=== PATIENT | male | born 1945 | race Caucasian/White ===

== ENCOUNTER → 2016-10-21 | Outpatient (REF) | payer MEDICARE, OTHER | LOC: M LAB REF 16:37 | PROVIDERS: ATTEND Surgery | DX: L57.8 Other skin changes due to chronic exposure to nonionizing radiation (principal) ==

== ENCOUNTER → 2017-03-23 | Outpatient (CLI) | payer MEDICARE, BC, OTHER ==
--- NOTE | 2017-03-23 11:41 | REP ---
Clinical: Pain. Technique: AP, lateral, bilateral oblique views of the right ankle. Findings: Lateral soft tissue swelling suggests inversion injury. No acute fracture dislocation. Joint spaces and ankle mortise are intact. No subcutaneous emphysema or radiodense foreign body. Impression: Lateral soft tissue swelling. Signed by Niko Orozco MD 03/23/2017 11:32 A
== END ==
LOC: M WUC 11:09
PROVIDERS: ATTEND Physician Assistant
DX: M25.571 Pain in right ankle and joints of right foot (principal); M25.471 Effusion, right ankle

== ENCOUNTER → 2017-08-20 | Outpatient (REF) | payer MEDICARE, OTHER ==
[2017-08-20 19:40] LABS: MEAN CORPUSCULAR HEMOGLOBIN 31.2 pg (27.0-33.0); MEAN CORPUSCULAR HGB CONC 32.5 g/dl (32.0-36.5); MEAN CORPUSCULAR VOLUME 95.9 fl (80.0-96.0); PLATELET COUNT, AUTOMATED 270 10^3/uL (150-450); RED CELL DISTRIBUTION WIDTH 12.3 % (11.5-14.5); WHITE BLOOD COUNT 6.2 10^3/uL (4.0-10.0)
[2017-08-20 20:06] LABS: ALBUMIN 4.2 GM/DL (3.2-5.2); ALBUMIN/GLOBULIN RATIO 1.31 (1.00-1.93); ALKALINE PHOSPHATASE 68 U/L (45-117); ALT/SGPT 32 U/L (12-78); ANION GAP 7 MEQ/L (8-16); AST/SGOT 24 U/L (7-37); BLOOD UREA NITROGEN 14 MG/DL (7-18); CALCIUM LEVEL 9.1 MG/DL (8.8-10.2); CARBON DIOXIDE LEVEL 30 MEQ/L (21-32); CHLORIDE LEVEL 104 MEQ/L (98-107); CHOLESTEROL LEVEL 155 MG/DL (<200); CREATININE FOR GFR 0.89 MG/DL (0.70-1.30); GLOMERULAR FILTRATION RATE > 60.0 (>42); GLUCOSE, FASTING 92 MG/DL (83-110); SODIUM LEVEL 141 MEQ/L (136-145); TOTAL PROTEIN 7.4 GM/DL (6.4-8.2); TRIGLYCERIDES LEVEL 59 MG/DL (<150)
== END ==
LOC: M SFHCADAM 14:03
PROVIDERS: ATTEND Family Medicine
DX: I25.10 Atherosclerotic heart disease of native coronary artery without angina pectoris (principal); E78.2 Mixed hyperlipidemia

== ENCOUNTER → 2017-11-30 | Outpatient (REF) | payer MEDICARE, OTHER | LOC: M LAB REF 12:30 | DX: J02.9 Acute pharyngitis, unspecified (principal) | CPT/HCPCS: 87081 ==

== ENCOUNTER → 2018-10-12 | Outpatient (REF) | payer MEDICARE, OTHER ==
[2018-10-12 12:51] LABS: HEMATOCRIT 46.3 % (42.0-52.0); HEMOGLOBIN 15.5 g/dl (13.5-17.5); MEAN CORPUSCULAR HEMOGLOBIN 32.2 pg (27.0-33.0); MEAN CORPUSCULAR HGB CONC 33.5 g/dl (32.0-36.5); MEAN CORPUSCULAR VOLUME 96.1 fl (80.0-96.0); PLATELET COUNT, AUTOMATED 275 10^3/uL (150-450); RED BLOOD COUNT 4.82 10^6/uL (4.30-6.10); WHITE BLOOD COUNT 5.7 10^3/uL (4.0-10.0)
[2018-10-12 12:59] LABS: ALBUMIN 4.1 GM/DL (3.2-5.2); ALT/SGPT 34 U/L (12-78); BLOOD UREA NITROGEN 16 MG/DL (7-18); CALCIUM LEVEL 9.1 MG/DL (8.8-10.2); CARBON DIOXIDE LEVEL 30 MEQ/L (21-32); CHLORIDE LEVEL 106 MEQ/L (98-107); CHOLESTEROL LEVEL 157 MG/DL (<200); CHOLESTEROL RISK RATIO 2.065 (<5); CREATININE FOR GFR 1.03 MG/DL (0.70-1.30); GLOMERULAR FILTRATION RATE > 60.0 (>42); GLUCOSE, FASTING 95 MG/DL (70-100); HDL CHOLESTEROL 76 MG/DL (>40); LDL CHOLESTEROL 71 MG/DL (<100); NON-HDL-C 81 MG/DL; POTASSIUM SERUM 4.7 MEQ/L (3.5-5.1); SODIUM LEVEL 142 MEQ/L (136-145); TOTAL PROTEIN 7.3 GM/DL (6.4-8.2); TRIGLYCERIDES LEVEL 51 MG/DL (<150)
== END ==
LOC: M SFHCADAM 09:22
PROVIDERS: ATTEND Family Medicine
DX: I25.10 Atherosclerotic heart disease of native coronary artery without angina pectoris (principal); I11.9 Hypertensive heart disease without heart failure; E78.2 Mixed hyperlipidemia; Z12.5 Encounter for screening for malignant neoplasm of prostate
CPT/HCPCS: 80053; 80061; 85027; G0103; G0463

== ENCOUNTER 2020-06-19 14:01 | Emergency (ER) | payer MEDICARE, BC, OTHER ==
[~2020-06-19] VITALS: Ht 175.3 cm; Wt 94.5 kg
[2020-06-19] MEDS ORDERED: METO1TAB32 (14:15)
[2020-06-19] MEDS ORDERED: PANT40TA29 (14:15)
[2020-06-19] MEDS ORDERED: CALA180T (14:15)
[2020-06-19] MEDS ORDERED: IRBE150T7 (14:15)
[2020-06-19] MEDS ORDERED: ATOR1TAB19 (14:15)
[2020-06-19] MEDS ORDERED: RABIES VACCINE HUMAN 2.5 INTERNATIONAL UNITS/ML VIAL (90675) IM ONE (14:30)
[2020-06-19] MEDS ORDERED: RABIES IMMUNE GLOBULIN 1500 INTERNATIONAL UNIT/5ML VIAL (90375) IM ONE ×2 (14:30→14:45)
[2020-06-19] MEDS ORDERED: RABIES IMMUNE GLOBULIN 300 INTERNATIONAL UNITS/1ML VIAL (90375) IM ONE (14:45)
[2020-06-19 15:42] VITALS: BP 172/96
== END 2020-06-19 15:43 | disposition home or self-care (01) ==
LOC: M ED 14:01
DX: Z20.3 Contact with and (suspected) exposure to rabies (principal); Z23 Encounter for immunization; S81.832A Puncture wound without foreign body, left lower leg, initial encounter; W54.0XXA Bitten by dog, initial encounter; Y92.410 Unspecified street and highway as the place of occurrence of the external cause; Y93.9 Activity, unspecified; Y99.9 Unspecified external cause status; I10 Essential (primary) hypertension; Z79.899 Other long term (current) drug therapy; Z88.5 Allergy status to narcotic agent

== ENCOUNTER 2020-06-22 07:44 | Emergency (ER) | payer MEDICARE, BC, OTHER ==
[~2020-06-22] VITALS: Ht 175.3 cm; Wt 95.7 kg
[~2020-06-22 07:44] MED LIST: ATOR1TAB19; CALA180T; IRBE150T7; METO1TAB32; PANT40TA29
[2020-06-22] MEDS ORDERED: RABIES VACCINE HUMAN 2.5 INTERNATIONAL UNITS/ML VIAL (90675) IM ONE (08:00)
[2020-06-22 08:23] VITALS: BP 170/90
== END 2020-06-22 08:41 | disposition home or self-care (01) ==
LOC: M ED 07:44
DX: Z20.3 Contact with and (suspected) exposure to rabies (principal); Z23 Encounter for immunization; I10 Essential (primary) hypertension; E78.5 Hyperlipidemia, unspecified; Z79.899 Other long term (current) drug therapy; Z88.5 Allergy status to narcotic agent

== ENCOUNTER 2020-06-26 07:35 | Emergency (ER) | payer MEDICARE, BC, OTHER ==
[~2020-06-26] VITALS: Ht 175.3 cm; Wt 92.7 kg
[2020-06-26 07:36] VITALS: BP 177/82
[2020-06-26] MEDS ORDERED: RABIES VACCINE HUMAN 2.5 INTERNATIONAL UNITS/ML VIAL (90675) IM ONE (08:00)
== END 2020-06-26 08:32 | disposition home or self-care (01) ==
LOC: M ED 07:35
DX: Z20.3 Contact with and (suspected) exposure to rabies (principal); Z23 Encounter for immunization; Z79.899 Other long term (current) drug therapy; Z88.5 Allergy status to narcotic agent

== ENCOUNTER 2020-07-03 07:38 | Emergency (ER) | payer MEDICARE, BC, OTHER ==
[~2020-07-03] VITALS: Ht 175.3 cm; Wt 92.6 kg
[2020-07-03] MEDS ORDERED: RABIES VACCINE HUMAN 2.5 INTERNATIONAL UNITS/ML VIAL (90675) IM ONE (08:00)
[2020-07-03 08:15] VITALS: BP 158/80
== END 2020-07-03 08:22 | disposition home or self-care (01) ==
LOC: M ED 07:38
DX: Z23 Encounter for immunization (principal); Z20.3 Contact with and (suspected) exposure to rabies; S81.852D Open bite, left lower leg, subsequent encounter; X58.XXXD Exposure to other specified factors, subsequent encounter; Y92.9 Unspecified place or not applicable; Y93.9 Activity, unspecified; Y99.9 Unspecified external cause status; I10 Essential (primary) hypertension; E78.5 Hyperlipidemia, unspecified; K21.9 Gastro-esophageal reflux disease without esophagitis

== ENCOUNTER → 2020-07-04 | Outpatient (REF) | payer MEDICARE, OTHER | LOC: M SFHCADAM 11:55 | PROVIDERS: ATTEND Family Medicine | DX: I25.10 Atherosclerotic heart disease of native coronary artery without angina pectoris (principal); E78.2 Mixed hyperlipidemia; K21.9 Gastro-esophageal reflux disease without esophagitis; I11.9 Hypertensive heart disease without heart failure; Z12.5 Encounter for screening for malignant neoplasm of prostate ==

== ENCOUNTER → 2020-07-09 | Outpatient (REF) | payer MEDICARE, OTHER ==
[2020-07-09 14:28] LABS: HEMATOCRIT 47.7 % (42.0-52.0); HEMOGLOBIN 15.8 g/dl (13.5-17.5); MEAN CORPUSCULAR HEMOGLOBIN 32.2 pg (27.0-33.0); MEAN CORPUSCULAR HGB CONC 33.1 g/dl (32.0-36.5); MEAN CORPUSCULAR VOLUME 97.1 fl (80.0-96.0); PLATELET COUNT, AUTOMATED 268 10^3/uL (150-450); RED BLOOD COUNT 4.91 10^6/uL (4.30-6.10); WHITE BLOOD COUNT 5.6 10^3/uL (4.0-10.0)
[2020-07-09 15:08] LABS: ALT/SGPT 24 U/L (12-78); BILIRUBIN,TOTAL 1.1 MG/DL (0.2-1.0); BLOOD UREA NITROGEN 10 MG/DL (7-18); CALCIUM LEVEL 9.4 MG/DL (8.8-10.2); CARBON DIOXIDE LEVEL 31 MEQ/L (21-32); CHLORIDE LEVEL 105 MEQ/L (98-107); CHOLESTEROL LEVEL 125 MG/DL (<200); CHOLESTEROL RISK RATIO 2.403 (<5); CREATININE FOR GFR 0.98 MG/DL (0.70-1.30); FREE T4 1.03 NG/DL (0.76-1.46); GLOMERULAR FILTRATION RATE > 60.0 (>42); GLUCOSE, FASTING 91 MG/DL (70-100); HDL CHOLESTEROL 52 MG/DL (>40); LDL CHOLESTEROL 58 MG/DL (<100); NON-HDL-C 73 MG/DL; POTASSIUM SERUM 4.3 MEQ/L (3.5-5.1); SODIUM LEVEL 143 MEQ/L (136-145); TOTAL PROTEIN 6.8 GM/DL (6.4-8.2); TRIGLYCERIDES LEVEL 73 MG/DL (<150)
== END ==
LOC: M SFHCADAM 07:32
PROVIDERS: ATTEND Family Medicine
DX: I25.10 Atherosclerotic heart disease of native coronary artery without angina pectoris (principal); E78.2 Mixed hyperlipidemia; K21.9 Gastro-esophageal reflux disease without esophagitis; I11.9 Hypertensive heart disease without heart failure; Z12.5 Encounter for screening for malignant neoplasm of prostate
CPT/HCPCS: 80053; 80061; 84439; 84443; 85027; G0103

== ENCOUNTER → 2021-07-15 | Outpatient (REF) | payer MEDICARE, OTHER | LOC: M LAB REF 13:10 | PROVIDERS: ATTEND Physician Assistant | DX: J02.9 Acute pharyngitis, unspecified (principal) ==

== ENCOUNTER → 2021-07-24 | Outpatient (REF) | payer MEDICARE, OTHER ==
[2021-07-24 18:53] LABS: HEMATOCRIT 48.1 % (42.0-52.0); HEMOGLOBIN 15.9 g/dl (13.5-17.5); MEAN CORPUSCULAR HEMOGLOBIN 32.4 pg (27.0-33.0); MEAN CORPUSCULAR HGB CONC 33.1 g/dl (32.0-36.5); MEAN CORPUSCULAR VOLUME 98.2 fl (80.0-96.0); PLATELET COUNT, AUTOMATED 325 10^3/uL (150-450)
[2021-07-24 19:28] LABS: ALBUMIN 3.7 GM/DL (3.2-5.2); ALT/SGPT 27 U/L (12-78); BILIRUBIN,TOTAL 0.8 MG/DL (0.2-1.0); BLOOD UREA NITROGEN 10 MG/DL (7-18); CALCIUM LEVEL 9.1 MG/DL (8.8-10.2); CARBON DIOXIDE LEVEL 31 MEQ/L (21-32); CHLORIDE LEVEL 105 MEQ/L (98-107); CHOLESTEROL LEVEL 142 MG/DL (<200); CHOLESTEROL RISK RATIO 2.327 (<5); CREATININE FOR GFR 0.88 MG/DL (0.70-1.30); GLOMERULAR FILTRATION RATE > 60.0 (>42); GLUCOSE, FASTING 82 MG/DL (70-100); HDL CHOLESTEROL 61 MG/DL (>40); LDL CHOLESTEROL 72 MG/DL (<100); NON-HDL-C 81 MG/DL; POTASSIUM SERUM 4.4 MEQ/L (3.5-5.1); SODIUM LEVEL 141 MEQ/L (136-145); TOTAL PROTEIN 7.1 GM/DL (6.4-8.2); TRIGLYCERIDES LEVEL 46 MG/DL (<150)
== END ==
LOC: M SFHCADAM 14:48
PROVIDERS: ATTEND Family Medicine
DX: I25.10 Atherosclerotic heart disease of native coronary artery without angina pectoris (principal); E78.2 Mixed hyperlipidemia; Z12.5 Encounter for screening for malignant neoplasm of prostate
CPT/HCPCS: 80053; 80061; 85027; G0103; G0463

== ENCOUNTER 2021-11-15 10:07 | Emergency (ER) | payer MEDICARE, OTHER, BC ==
[~2021-11-15] VITALS: Ht 172.7 cm; Wt 88.2 kg
[2021-11-15 11:31] LABS: BASO % 0.4 % (0.0-1.0); EOS # 0.1 10^3/uL (0.0-0.5); EOS % 0.9 % (0.0-3.0); HEMATOCRIT 45.4 % (42.0-52.0); HEMOGLOBIN 15.6 g/dl (13.5-17.5); LYMPH # 0.7 10^3/uL (1.5-5.0); MEAN CORPUSCULAR HEMOGLOBIN 32.3 pg (27.0-33.0); MEAN CORPUSCULAR HGB CONC 34.4 g/dl (32.0-36.5); MONO # 0.5 10^3/uL (0.0-0.8); MONO % 5.1 % (2.0-8.0); NEUTROPHILS % 85.9 % (36.0-66.0); PLATELET COUNT, AUTOMATED 234 10^3/uL (150-450); RED BLOOD COUNT 4.83 10^6/uL (4.30-6.10); WHITE BLOOD COUNT 10.5 10^3/uL (4.0-10.0)
[2021-11-15 12:39] LABS: ALT/SGPT 30 U/L (12-78); BILIRUBIN,DIRECT 0.4 MG/DL (0.0-0.2); BILIRUBIN,TOTAL 1.5 MG/DL (0.2-1.0); BLOOD UREA NITROGEN 14 MG/DL (7-18); CARBON DIOXIDE LEVEL 27 MEQ/L (21-32); CHLORIDE LEVEL 106 MEQ/L (98-107); CREATININE FOR GFR 1.01 MG/DL (0.70-1.30); GLOMERULAR FILTRATION RATE > 60.0 (>42); GLUCOSE, FASTING 99 MG/DL (70-100); LIPASE 61 U/L (73-393); POTASSIUM SERUM 4.1 MEQ/L (3.5-5.1); SODIUM LEVEL 139 MEQ/L (136-145); TOTAL PROTEIN 7.2 GM/DL (6.4-8.2)
[2021-11-15] MEDS ORDERED: ISOVUE-370 76% 100ML VIAL As Ordered ONE (12:48)
[2021-11-15 14:07] VITALS: BP 154/90
== END 2021-11-15 14:18 | disposition home or self-care (01) ==
LOC: M ED 10:07
DX: R14.0 Abdominal distension (gaseous) (principal); I25.10 Atherosclerotic heart disease of native coronary artery without angina pectoris; I10 Essential (primary) hypertension; K21.9 Gastro-esophageal reflux disease without esophagitis; Z95.5 Presence of coronary angioplasty implant and graft; Z87.891 Personal history of nicotine dependence; Z79.899 Other long term (current) drug therapy; Z88.5 Allergy status to narcotic agent
CPT/HCPCS: 36415; 74177; 80048; 80076; 83605; 83690; 84484; 85025; 93005; 99284; Q9967

== ENCOUNTER 2022-02-14 09:48 | Emergency (ER) | payer MEDICARE, BC, OTHER ==
[~2022-02-14] VITALS: Ht 175.3 cm; Wt 93.8 kg
[2022-02-14] MEDS ORDERED: SANI2SUP PR (11:44)
[2022-02-14] MEDS ORDERED: COLA100C5 PO (11:44)
[2022-02-14 11:56] VITALS: BP 148/82
== END 2022-02-14 11:57 | disposition home or self-care (01) ==
LOC: M ED 09:48
DX: K59.00 Constipation, unspecified (principal); I10 Essential (primary) hypertension; E78.5 Hyperlipidemia, unspecified; K21.9 Gastro-esophageal reflux disease without esophagitis; Z79.899 Other long term (current) drug therapy; Z88.5 Allergy status to narcotic agent

== ENCOUNTER → 2022-07-25 | Outpatient (REF) | payer MEDICARE, OTHER ==
[~2022-07-25] MED LIST changes: +COLA100C5 PO; +SANI2SUP PR
== END ==
LOC: M SFHCADAM 14:03
PROVIDERS: ATTEND Family Medicine
DX: I25.10 Atherosclerotic heart disease of native coronary artery without angina pectoris (principal); E78.2 Mixed hyperlipidemia; Z12.5 Encounter for screening for malignant neoplasm of prostate; Z53.9 Procedure and treatment not carried out, unspecified reason

== ENCOUNTER → 2022-07-28 | Outpatient (REF) | payer MEDICARE, OTHER ==
[2022-07-28 14:29] LABS: HEMOGLOBIN 14.6 g/dl (13.5-17.5); MEAN CORPUSCULAR HGB CONC 32.4 g/dl (32.0-36.5); MEAN CORPUSCULAR VOLUME 101.6 fl (80.0-96.0); PLATELET COUNT, AUTOMATED 225 10^3/uL (150-450); RED BLOOD COUNT 4.43 10^6/uL (4.30-6.10); WHITE BLOOD COUNT 4.7 10^3/uL (4.0-10.0)
[2022-07-28 16:38] LABS: ALBUMIN 3.7 GM/DL (3.2-5.2); ALT/SGPT 27 U/L (12-78); BILIRUBIN,TOTAL 1.2 MG/DL (0.2-1.0); BLOOD UREA NITROGEN 9 MG/DL (7-18); CALCIUM LEVEL 9.1 MG/DL (8.8-10.2); CARBON DIOXIDE LEVEL 27 MEQ/L (21-32); CHLORIDE LEVEL 107 MEQ/L (98-107); CHOLESTEROL LEVEL 185 MG/DL (<200); CHOLESTEROL RISK RATIO 2.681 (<5); CREATININE FOR GFR 0.95 MG/DL (0.70-1.30); FREE T4 0.88 NG/DL (0.76-1.46); GLOMERULAR FILTRATION RATE > 60.0 (>42); GLUCOSE, FASTING 94 MG/DL (70-100); HDL CHOLESTEROL 69 MG/DL (>40); LDL CHOLESTEROL 103 MG/DL (<100); NON-HDL-C 116 MG/DL; POTASSIUM SERUM 4.4 MEQ/L (3.5-5.1); SODIUM LEVEL 142 MEQ/L (136-145); TOTAL PROTEIN 6.8 GM/DL (6.4-8.2); TRIGLYCERIDES LEVEL 65 MG/DL (<150)
== END ==
LOC: M SFHCADAM 07:16
PROVIDERS: ATTEND Family Medicine
DX: I25.10 Atherosclerotic heart disease of native coronary artery without angina pectoris (principal); E78.2 Mixed hyperlipidemia; Z12.5 Encounter for screening for malignant neoplasm of prostate
CPT/HCPCS: 80053; 80061; 84439; 84443; 85027; G0103

== ENCOUNTER → 2023-09-22 | Outpatient (REF) | payer MEDICARE, BC, OTHER ==
[2023-09-22 14:17] LABS: HEMATOCRIT 59.5 % (42.0-52.0); MEAN CORPUSCULAR HEMOGLOBIN 34.7 pg (27.0-33.0); MEAN CORPUSCULAR HGB CONC 34.3 g/dl (32.0-36.5); MEAN CORPUSCULAR VOLUME 101.2 fl (80.0-96.0); PLATELET COUNT, AUTOMATED 200 10^3/uL (150-450); RED BLOOD COUNT 5.88 10^6/uL (4.30-6.10); WHITE BLOOD COUNT 5.3 10^3/uL (4.0-10.0)
[2023-09-22 14:21] LABS: FERRITIN 60.8 NG/ML (10.5-307.3)
[2023-09-22 14:32] LABS: HEMOGLOBIN 20.4 g/dl (13.5-17.5)
[2023-09-23 16:53] LABS: PERCENT SATURATION 20.2 % (19.7-50.0)
== END ==
LOC: M SFHCADAM 07:53
PROVIDERS: ATTEND Family Medicine
DX: D75.1 Secondary polycythemia (principal); Z86.39 Personal history of other endocrine, nutritional and metabolic disease

== ENCOUNTER → 2023-09-23 | Outpatient (REF) | payer MEDICARE, BC, OTHER | LOC: M SFHCADAM 09:59 | PROVIDERS: ATTEND Family Medicine | DX: D75.1 Secondary polycythemia (principal) ==

== ENCOUNTER → 2023-09-24 | Outpatient (REF) | payer MEDICARE, BC, OTHER | LOC: M SFHCDERM 13:13 | PROVIDERS: ATTEND Nurse Practitioner Family | DX: C44.311 Basal cell carcinoma of skin of nose (principal); C44.319 Basal cell carcinoma of skin of other parts of face ==

== ENCOUNTER 2023-10-09 03:25 | Inpatient (IN) | payer MEDICARE, BC, OTHER ==
[2023-10-09] VITALS (52 sets, daily range): BP systolic 75–189; BP diastolic 44–100; TEMP 97.5–98.4; O2SAT 88–98
[~2023-10-09] VITALS: Ht 172.7 cm; Wt 97.9 kg
[~2023-10-09 03:25] MED LIST changes: -ATOR1TAB19; +ATOR1TAB19 PO; +IRBE150T27 PO; -IRBE150T7; -METO1TAB32; +METO1TAB32 PO; -PANT40TA29; +PANT40TA29 PO
[2023-10-09 04:12] LABS: BASO # 0.1 10^3/uL (0.0-0.2); BASO % 1.5 % (0.0-1.0); EOS # 0.2 10^3/uL (0.0-0.5); EOS % 3.3 % (0.0-3.0); HEMATOCRIT 55.5 % (42.0-52.0); HEMOGLOBIN 19.2 g/dl (13.5-17.5); LYMPH # 1.1 10^3/uL (1.5-5.0); LYMPH % 23.1 % (24.0-44.0); MEAN CORPUSCULAR HEMOGLOBIN 34.3 pg (27.0-33.0); MEAN CORPUSCULAR HGB CONC 34.6 g/dl (32.0-36.5); MEAN CORPUSCULAR VOLUME 99.3 fl (80.0-96.0); MONO # 0.6 10^3/uL (0.0-0.8); MONO % 12.6 % (2.0-8.0); NEUTROPHILS # 2.6 10^3/uL (1.5-8.5); NEUTROPHILS % 58.2 % (36.0-66.0); PLATELET COUNT, AUTOMATED 217 10^3/uL (150-450); RED BLOOD COUNT 5.59 10^6/uL (4.30-6.10); WHITE BLOOD COUNT 4.5 10^3/uL (4.0-10.0)
[2023-10-09 04:24] LABS: INR 1.08; PROTHROMBIN TIME 13.7 SECONDS (12.5-14.5)
[2023-10-09 04:25] LABS: PARTIAL THROMBOPLASTIN TIME 27.7 SECONDS (24.8-34.2)
[2023-10-09 04:40] LABS: RSV AMPLIFICATION NEGATIVE (NEGATIVE)
[2023-10-09 04:46] LABS: BLOOD UREA NITROGEN 8 MG/DL (9-23); CALCIUM LEVEL 8.5 MG/DL (8.3-10.6); CARBON DIOXIDE LEVEL 28 MMOL/L (20-31); CHLORIDE LEVEL 107 MMOL/L (98-107); CK-MB VALUE MASS 1.1 NG/ML (<3.6); CREATININE FOR GFR 0.85 MG/DL (0.70-1.30); GLOMERULAR FILTRATION RATE > 60.0 (>42); GLUCOSE, FASTING 103 MG/DL (74-106); POTASSIUM SERUM 3.9 MMOL/L (3.5-5.1); SODIUM LEVEL 140 MMOL/L (136-145)
[2023-10-09 04:48] LABS: CPK CREATINE PHOSPHOKINASE 100 U/L (46-171)
[2023-10-09] MEDS: hydrALAZINE 20MG/ML 1ML VIAL IV ONE (05:03)
[2023-10-09 05:08] LABS: MAGNESIUM LEVEL 1.8 MG/DL (1.8-2.4)
[2023-10-09] MEDS ORDERED: MAALOX 30 ML SUSP *UDC PO PRN (05:25)
[2023-10-09] MEDS ORDERED: MOM 30ML SUSPENSION UDC PO PRN (05:25)
[2023-10-09] MEDS ORDERED: VERA180T42 PO (05:40)
[2023-10-09] MEDS ORDERED: BISA5TAB15 PO (05:40)
[2023-10-09] MEDS ORDERED: COLA100C5 PO (05:40)
[2023-10-09] MEDS ORDERED: MECL-86 PO (05:40)
[2023-10-09] MEDS ORDERED: ASPI81TA26 PO (05:40)
[2023-10-09] MEDS ORDERED: HOME MED LIST COMPLETE! XX SCH (05:45)
[2023-10-09] MEDS ORDERED: IRON65TA2 PO (05:45)
[2023-10-09] MEDS ORDERED: COQ1200C PO (05:45)
[2023-10-09 05:54] LABS: CK-MB VALUE MASS 1.2 NG/ML (<3.6)
[2023-10-09] MEDS: NS 1,000 ML IV SCH ×2 (05:58→15:29)
[2023-10-09 06:06] LABS: MB/CK RELATIVE INDEX 1.23 (< OR =4)
[2023-10-09] MEDS: ACETAMINOPHEN TAB 650MG DOSE (2X325MG) PO PRN (06:37)
[2023-10-09] MEDS ORDERED: FERROUS SULFATE 325MG TAB PO SCH (09:00)
[2023-10-09] MEDS: DOCUSATE SODIUM 100MG CAPSULE PO SCH (09:43)
[2023-10-09] MEDS: HEPARIN SOD (PORCINE) 5000UNITS/ML 1ML VIAL/SYRINGE SC SCH (09:44)
[2023-10-09] MEDS ORDERED: ISOVUE-370 76% 100ML VIAL As Ordered ONE (11:02)
[2023-10-09 11:17] LABS: CHOLESTEROL LEVEL 177 MG/DL (<200); LDL CHOLESTEROL 101.6 MG/DL (<100); TRIGLYCERIDES LEVEL 92 MG/DL (<150)
[2023-10-09 11:59] LABS: ALBUMIN 3.8 G/DL (3.2-5.2); ALKALINE PHOSPHATASE 79 U/L (46-116); ALT/SGPT 33 U/L (7.0-40); AST/SGOT 29 U/L (<34); BILIRUBIN,TOTAL 2.2 MG/DL (0.3-1.2); BLOOD UREA NITROGEN 8 MG/DL (9-23); CALCIUM LEVEL 8.8 MG/DL (8.3-10.6); CARBON DIOXIDE LEVEL 27 MMOL/L (20-31); CHLORIDE LEVEL 107 MMOL/L (98-107); CREATININE FOR GFR 0.75 MG/DL (0.70-1.30); GLOMERULAR FILTRATION RATE > 60.0 (>42); GLUCOSE, FASTING 102 MG/DL (74-106); POTASSIUM SERUM 3.8 MMOL/L (3.5-5.1); SODIUM LEVEL 139 MMOL/L (136-145); TOTAL PROTEIN 6.5 G/DL (5.7-8.2)
[2023-10-09] MEDS ORDERED: BISACODYL 5MG TAB PO PRN (12:40)
[2023-10-09] MEDS ORDERED: MECLIZINE 25 MG TABLET PO PRN (12:40)
[2023-10-09] MEDS: cloNIDine 0.1MG TABLET PO ONE ×2 (13:33→15:29)
[2023-10-09] MEDS: NITROGLYCERIN 2% OINT 1 GM *U/D* PKT TOP ONE (13:35)
[2023-10-09] MEDS ORDERED: ASPIRIN 81MG ENTERIC TABLET PO SCH (14:35)
[2023-10-09] MEDS: ASPIRIN 81MG ENTERIC TABLET PO SCH (14:37)
[2023-10-09] MEDS: METOPROLOL SUCC *XL* 12.5MG PER 1/2 TAB (TopROL *XL*) PO ONE (15:29)
[2023-10-09] MEDS: VERAPAMIL 180MG EXTENDED RELEASE TABLET PO ONE (15:29)
[2023-10-09] MEDS: niCARdipine IV 40 MG in IV 1 EA IV SCH (16:11)
[2023-10-09 19:32] LABS: ABG BASE EXCESS -0.9 (-2.0-2.0); ABG HCO3 21.8 MMOL/L (22.0-26.0); ABG O2 SATURATION 95.4 % (95.0-99.0); ABG PARTIAL PRESSURE CO2 32.4 mmHg (35.0-45.0); ABG PARTIAL PRESSURE O2 69.9 mmHg (75.0-100.0); ABG STANDARD HCO3 23.6 MMOL/L. (22.0-26.0); ABG TOTAL CO2 22.8 MMOL/L (23.0-31.0); ABG pH (ARTERIAL) 7.446 UNITS (7.350-7.450)
[2023-10-09] MEDS: LORazepam 2 MG/ML 1ML VIAL IV PRN ×2 (20:50→22:47)
[2023-10-09] MEDS ORDERED: PANTOPRAZOLE 40MG TAB (PROTONIX) PO SCH (21:00)
[2023-10-09] MEDS ORDERED: METOPROLOL SUCC *XL* 25MG TAB (TopROL *XL*) PO SCH (21:00)
[2023-10-09] MEDS: ATORVASTATIN 10 MG TAB PO SCH (21:00)
[2023-10-09] MEDS: THIAMINE 200MG 2ML VIAL IM ONE (23:24)
[2023-10-10] VITALS (76 sets, daily range): BP systolic 92–221; BP diastolic 49–126; TEMP 97.4–98.6; O2SAT 89–99
[2023-10-10] MEDS: hydrALAZINE 20MG/ML 1ML VIAL IV PRN (00:23)
[2023-10-10] MEDS: dexmedeTOMidine 200 MCG in IV 1 EA IV SCH (00:56)
[2023-10-10] MEDS: OLANZapine INTRAMUSCULAR 10MG VIAL IM ONE (02:01)
[2023-10-10 06:07] LABS: HEMATOCRIT 53.3 % (42.0-52.0); HEMOGLOBIN 18.4 g/dl (13.5-17.5); MEAN CORPUSCULAR HEMOGLOBIN 34.2 pg (27.0-33.0); MEAN CORPUSCULAR HGB CONC 34.5 g/dl (32.0-36.5); MEAN CORPUSCULAR VOLUME 99.1 fl (80.0-96.0); PLATELET COUNT, AUTOMATED 204 10^3/uL (150-450); RED BLOOD COUNT 5.38 10^6/uL (4.30-6.10); WHITE BLOOD COUNT 7.2 10^3/uL (4.0-10.0)
[2023-10-10 06:38] LABS: ALBUMIN 3.4 G/DL (3.2-5.2); ALKALINE PHOSPHATASE 68 U/L (46-116); ALT/SGPT 28 U/L (7.0-40); AST/SGOT 30 U/L (<34); BILIRUBIN,TOTAL 3.3 MG/DL (0.3-1.2); BLOOD UREA NITROGEN 8 MG/DL (9-23); CALCIUM LEVEL 8.8 MG/DL (8.3-10.6); CARBON DIOXIDE LEVEL 26 MMOL/L (20-31); CHLORIDE LEVEL 108 MMOL/L (98-107); CREATININE FOR GFR 0.77 MG/DL (0.70-1.30); GLOMERULAR FILTRATION RATE > 60.0 (>42); GLUCOSE, FASTING 102 MG/DL (74-106); POTASSIUM SERUM 3.8 MMOL/L (3.5-5.1); SODIUM LEVEL 141 MMOL/L (136-145); TOTAL PROTEIN 5.8 G/DL (5.7-8.2)
[2023-10-10] MEDS: DOCUSATE SODIUM 100MG CAPSULE PO SCH (08:29)
[2023-10-10] MEDS: THIAMINE 200MG 2ML VIAL IM SCH (08:35)
[2023-10-10] MEDS ORDERED: ASPIRIN 300 MG SUPP PR SCH (09:00)
[2023-10-10] MEDS ORDERED: IRBESARTAN 150MG TAB PO SCH (09:00)
[2023-10-10] MEDS ORDERED: VERAPAMIL 180MG EXTENDED RELEASE TABLET PO SCH (09:00)
[2023-10-10 12:10] LABS: ANTINUCLEAR ANTIBODIES DIRECT Negative (Negative)
[2023-10-10] MEDS: MULTIVITAMIN -ADULT INJECTION 10 ML, THIAMINE INJection 100 MG, FOLIC ACID 1 MG in NS 1... IV ONE (17:39)
[2023-10-10 18:12] LABS: VENOUS BASE EXCESS -2.1 (-2.0-2.0); VENOUS HCO3 20.8 MMOL/L (23.0-27.0); VENOUS O2 SATURATION 97.7 % (60.0-80.0); VENOUS PARTIAL PRESSURE CO2 32.2 mmHg (38.0-50.0); VENOUS PARTIAL PRESSURE O2 96.2 mmHg (30.0-50.0); VENOUS PH 7.428 UNITS (7.330-7.430); VENOUS STANDARD HCO3 22.7 MMOL/L; VENOUS TOTAL CO2 21.8 MMOL/L (24.0-28.0)
[2023-10-10] MEDS: ATORVASTATIN 20 MG TAB PO SCH (19:16)
[2023-10-10] MEDS ORDERED: ROCURONIUM BROMIDE 50MG/5ML VIAL As Ordered ONE (20:38)
[2023-10-10] MEDS ORDERED: MIDAZOLAM 5MG/ML 1ML VIAL As Ordered ONE (20:38)
[2023-10-10] MEDS ORDERED: PROPOFOL 1,000 MG/100 ML VIAL As Ordered ONE (20:39)
[2023-10-10] MEDS ORDERED: MIDAZOLAM 5MG/ML 1ML VIAL IM ONE (20:55)
[2023-10-10] MEDS: propofoL 1,000 MG in IV 1 EA IV SCH (20:55)
[2023-10-10 21:39] LABS: VENOUS BASE EXCESS -4.5 (-2.0-2.0); VENOUS HCO3 21.3 MMOL/L (23.0-27.0); VENOUS O2 SATURATION 97.4 % (60.0-80.0); VENOUS PARTIAL PRESSURE CO2 41.9 mmHg (38.0-50.0); VENOUS PARTIAL PRESSURE O2 98.1 mmHg (30.0-50.0); VENOUS PH 7.324 UNITS (7.330-7.430); VENOUS STANDARD HCO3 20.8 MMOL/L; VENOUS TOTAL CO2 22.6 MMOL/L (24.0-28.0)
[2023-10-10] MEDS: ROCURONIUM BROMIDE 50MG/5ML VIAL IV SCH (22:53)
[2023-10-10] MEDS: MIDAZOLAM 5MG/ML 1ML VIAL IV ONE (22:57)
[2023-10-11] VITALS (50 sets, daily range): BP systolic 98–206; BP diastolic 51–93; TEMP 97.2–99.3; O2SAT 94–99
[2023-10-11] MEDS: MIDAZOLAM INJ 2MG/2ML VIAL IV PRN (04:41)
[2023-10-11 05:23] LABS: HEMATOCRIT 43.2 % (42.0-52.0)
[2023-10-11 05:24] LABS: HEMOGLOBIN 14.5 g/dl (13.5-17.5)
[2023-10-11] MEDS: OXAZEPAM 15MG CAP PO SCH ×2 (09:27→23:25)
[2023-10-11] MEDS: VERAPAMIL 40 MG TAB PO SCH (17:53)
[2023-10-11] MEDS ORDERED: OXAZEPAM 15MG CAP PO SCH (18:00)
[2023-10-11] MEDS: METOPROLOL TART 12.5 MG PER 1/2 TAB PO SCH (20:08)
[2023-10-12] VITALS (66 sets, daily range): BP systolic 98–193; BP diastolic 53–87; TEMP 97.9–101; O2SAT 92–97
[2023-10-12 06:08] LABS: ALBUMIN 2.9 G/DL (3.2-5.2); ALKALINE PHOSPHATASE 63 U/L (46-116); ALT/SGPT 61 U/L (7.0-40); AST/SGOT 160 U/L (<34); BILIRUBIN,DIRECT 1.8 MG/DL (<0.4); BILIRUBIN,TOTAL 3.5 MG/DL (0.3-1.2); BLOOD UREA NITROGEN 28 MG/DL (9-23); CALCIUM LEVEL 8.7 MG/DL (8.3-10.6); CARBON DIOXIDE LEVEL 25 MMOL/L (20-31); CHLORIDE LEVEL 107 MMOL/L (98-107); CREATININE FOR GFR 1.21 MG/DL (0.70-1.30); GLOMERULAR FILTRATION RATE > 60.0 (>42); GLUCOSE, FASTING 98 MG/DL (74-106); POTASSIUM SERUM 3.9 MMOL/L (3.5-5.1); SODIUM LEVEL 138 MMOL/L (136-145); TOTAL PROTEIN 5.7 G/DL (5.7-8.2)
[2023-10-12] MEDS: niCARdipine IV 40 MG in IV 1 EA IV SCH (11:23)
[2023-10-12] MEDS: OXAZEPAM 15MG CAP PO SCH (12:00)
[2023-10-12] MEDS: METOPROLOL 5 MG/5 ML VIAL IV PRN (18:27)
[2023-10-12] MEDS: MULTIVITAMIN -ADULT INJECTION 10 ML, THIAMINE INJection 100 MG, FOLIC ACID 1 MG in NS 1... IV ONE (18:28)
[2023-10-13] VITALS (94 sets, daily range): BP systolic 97–191; BP diastolic 54–103; TEMP 97.5–100.8; O2SAT 91–99
[2023-10-13 05:23] LABS: BASO # 0.1 10^3/uL (0.0-0.2); BASO % 0.3 % (0.0-1.0); EOS % 0.1 % (0.0-3.0); LYMPH # 0.9 10^3/uL (1.5-5.0); LYMPH % 6.3 % (24.0-44.0); MEAN CORPUSCULAR HEMOGLOBIN 34.6 pg (27.0-33.0); MEAN CORPUSCULAR HGB CONC 33.8 g/dl (32.0-36.5); MEAN CORPUSCULAR VOLUME 102.3 fl (80.0-96.0); MONO # 1.6 10^3/uL (0.0-0.8); MONO % 11.1 % (2.0-8.0); NEUTROPHILS # 11.9 10^3/uL (1.5-8.5); NEUTROPHILS % 81.4 % (36.0-66.0); PLATELET COUNT, AUTOMATED 161 10^3/uL (150-450); RED BLOOD COUNT 5.12 10^6/uL (4.30-6.10); WHITE BLOOD COUNT 14.7 10^3/uL (4.0-10.0)
[2023-10-13 05:41] LABS: ALKALINE PHOSPHATASE 68 U/L (46-116); ALT/SGPT 69 U/L (7.0-40); AST/SGOT 135 U/L (<34); BILIRUBIN,TOTAL 3.6 MG/DL (0.3-1.2); BLOOD UREA NITROGEN 30 MG/DL (9-23); CALCIUM LEVEL 8.4 MG/DL (8.3-10.6); CARBON DIOXIDE LEVEL 23 MMOL/L (20-31); CHLORIDE LEVEL 109 MMOL/L (98-107); CREATININE FOR GFR 1.01 MG/DL (0.70-1.30); GLOMERULAR FILTRATION RATE > 60.0 (>42); GLUCOSE, FASTING 101 MG/DL (74-106); MAGNESIUM LEVEL 2.2 MG/DL (1.8-2.4); PHOSPHORUS LEVEL 3.4 MG/DL (2.4-5.1); POTASSIUM SERUM 3.8 MMOL/L (3.5-5.1); SODIUM LEVEL 141 MMOL/L (136-145); TOTAL PROTEIN 5.8 G/DL (5.7-8.2)
[2023-10-13 05:43] LABS: HEMATOCRIT 52.4 % (42.0-52.0); HEMOGLOBIN 17.7 g/dl (13.5-17.5)
[2023-10-13] MEDS: DOCUSATE SOD LIQ 100MG/10ML UDC GT SCH (10:18)
[2023-10-13] MEDS: PANTOPRAZOLE 40MG VIAL IV SCH (18:00)
[2023-10-13] MEDS: LORazepam 2 MG/ML 1ML VIAL IV ONE (22:50)
[2023-10-13] MEDS ORDERED: LORazepam 2 MG/ML 1ML VIAL IV PRN (23:45)
[2023-10-14] VITALS (71 sets, daily range): BP systolic 116–216; BP diastolic 55–89; TEMP 97.6–100; O2SAT 90–97
[2023-10-14 04:37] LABS: BASO # 0.1 10^3/uL (0.0-0.2); BASO % 0.7 % (0.0-1.0); EOS # 0.1 10^3/uL (0.0-0.5); EOS % 0.6 % (0.0-3.0); HEMOGLOBIN 17.8 g/dl (13.5-17.5); LYMPH % 8.9 % (24.0-44.0); MEAN CORPUSCULAR HEMOGLOBIN 34.7 pg (27.0-33.0); MEAN CORPUSCULAR HGB CONC 34.2 g/dl (32.0-36.5); MEAN CORPUSCULAR VOLUME 101.4 fl (80.0-96.0); MONO # 1.4 10^3/uL (0.0-0.8); MONO % 12.7 % (2.0-8.0); NEUTROPHILS # 8.7 10^3/uL (1.5-8.5); NEUTROPHILS % 76.1 % (36.0-66.0); PLATELET COUNT, AUTOMATED 172 10^3/uL (150-450); RED BLOOD COUNT 5.13 10^6/uL (4.30-6.10); WHITE BLOOD COUNT 11.4 10^3/uL (4.0-10.0)
[2023-10-14 05:26] LABS: ALBUMIN 2.9 G/DL (3.2-5.2); ALKALINE PHOSPHATASE 68 U/L (46-116); ALT/SGPT 62 U/L (7.0-40); AST/SGOT 94 U/L (<34); BILIRUBIN,TOTAL 3.2 MG/DL (0.3-1.2); BLOOD UREA NITROGEN 26 MG/DL (9-23); CALCIUM LEVEL 8.7 MG/DL (8.3-10.6); CARBON DIOXIDE LEVEL 23 MMOL/L (20-31); CHLORIDE LEVEL 111 MMOL/L (98-107); CREATININE FOR GFR 0.89 MG/DL (0.70-1.30); GLOMERULAR FILTRATION RATE > 60.0 (>42); GLUCOSE, FASTING 97 MG/DL (74-106); MAGNESIUM LEVEL 2.3 MG/DL (1.8-2.4); PHOSPHORUS LEVEL 2.4 MG/DL (2.4-5.1); POTASSIUM SERUM 3.9 MMOL/L (3.5-5.1); SODIUM LEVEL 143 MMOL/L (136-145); TOTAL PROTEIN 5.9 G/DL (5.7-8.2)
[2023-10-14 08:40] LABS: VENOUS BASE EXCESS -1.8 (-2.0-2.0); VENOUS HCO3 20.5 MMOL/L (23.0-27.0); VENOUS O2 SATURATION 99.1 % (60.0-80.0); VENOUS PARTIAL PRESSURE CO2 30.1 mmHg (38.0-50.0); VENOUS PH 7.452 UNITS (7.330-7.430); VENOUS TOTAL CO2 21.5 MMOL/L (24.0-28.0)
[2023-10-14] MEDS: INSULIN LISPRO (NovoLOG) PER UNIT SC SCH (17:10)
[2023-10-14] MEDS: LORazepam 2 MG/ML 1ML VIAL IV PRN (18:01)
[2023-10-14] MEDS: FAT EMULSION IV 250 ML IV ONE (20:09)
[2023-10-14] MEDS: AMINO AC/ELECTROLYTE/DEX/CALC 1,000 ML IV SCH (20:09)
[2023-10-15] VITALS (45 sets, daily range): BP systolic 113–194; BP diastolic 51–91; TEMP 97.8–100.1; O2SAT 89–94
[2023-10-15 05:05] LABS: ALBUMIN 2.7 G/DL (3.2-5.2); ALKALINE PHOSPHATASE 69 U/L (46-116); ALT/SGPT 62 U/L (7.0-40); AST/SGOT 88 U/L (<34); BILIRUBIN,TOTAL 3.1 MG/DL (0.3-1.2); BLOOD UREA NITROGEN 35 MG/DL (9-23); CALCIUM LEVEL 8.9 MG/DL (8.3-10.6); CARBON DIOXIDE LEVEL 22 MMOL/L (20-31); CHLORIDE LEVEL 113 MMOL/L (98-107); CREATININE FOR GFR 0.91 MG/DL (0.70-1.30); GLOMERULAR FILTRATION RATE > 60.0 (>42); GLUCOSE, FASTING 117 MG/DL (74-106); MAGNESIUM LEVEL 2.6 MG/DL (1.8-2.4); POTASSIUM SERUM 3.6 MMOL/L (3.5-5.1); SODIUM LEVEL 142 MMOL/L (136-145); TOTAL PROTEIN 5.8 G/DL (5.7-8.2)
[2023-10-15] MEDS: HYALURONIDASE 150UNIT/ML 1ML VIAL (AMPHADASE) SC ONE (05:55)
[2023-10-15] MEDS: ENOXAPARIN 40MG/0.4ML SYRINGE (J1650 PER 10MG) SC SCH (09:09)
[2023-10-15] MEDS: SODIUM CHLORIDE 0.9% INJ 10 ML SYR IV SCH (17:51)
[2023-10-15] MEDS: AMINO AC/ELECTROLYTE/DEX/CALC 1,000 ML IV SCH (19:00)
[2023-10-15] MEDS: METOPROLOL 5 MG/5 ML VIAL IV STA (19:52)
[2023-10-15] MEDS: LEVALBUTEROL 1.25MG 0.5ML CONCENTRATE NEB NEB ONE (20:39)
[2023-10-16] VITALS (35 sets, daily range): BP systolic 129–193; BP diastolic 59–83; TEMP 97.9–100.1; O2SAT 88–95
[2023-10-16 05:07] LABS: ALBUMIN 2.8 G/DL (3.2-5.2); ALKALINE PHOSPHATASE 74 U/L (46-116); ALT/SGPT 70 U/L (7.0-40); AST/SGOT 82 U/L (<34); BILIRUBIN,TOTAL 4.6 MG/DL (0.3-1.2); BLOOD UREA NITROGEN 43 MG/DL (9-23); CALCIUM LEVEL 8.3 MG/DL (8.3-10.6); CARBON DIOXIDE LEVEL 21 MMOL/L (20-31); CHLORIDE LEVEL 116 MMOL/L (98-107); CREATININE FOR GFR 1.05 MG/DL (0.70-1.30); GLOMERULAR FILTRATION RATE > 60.0 (>42); GLUCOSE, FASTING 121 MG/DL (74-106); MAGNESIUM LEVEL 2.6 MG/DL (1.8-2.4); POTASSIUM SERUM 3.6 MMOL/L (3.5-5.1); SODIUM LEVEL 145 MMOL/L (136-145); TOTAL PROTEIN 5.9 G/DL (5.7-8.2)
[2023-10-16] MEDS ORDERED: OXYMETAZOLINE 0.05% NASAL SPRAY (AFRIN) PRN (11:55)
[2023-10-16 12:35] LABS: BASO # 0.1 10^3/uL (0.0-0.2); BASO % 0.8 % (0.0-1.0); EOS # 0.1 10^3/uL (0.0-0.5); EOS % 1.3 % (0.0-3.0); HEMATOCRIT 51.9 % (42.0-52.0); HEMOGLOBIN 17.5 g/dl (13.5-17.5); LYMPH # 0.5 10^3/uL (1.5-5.0); MEAN CORPUSCULAR HEMOGLOBIN 34.5 pg (27.0-33.0); MEAN CORPUSCULAR HGB CONC 33.7 g/dl (32.0-36.5); MEAN CORPUSCULAR VOLUME 102.4 fl (80.0-96.0); MONO # 1.2 10^3/uL (0.0-0.8); MONO % 13.4 % (2.0-8.0); NEUTROPHILS # 6.9 10^3/uL (1.5-8.5); NEUTROPHILS % 77.3 % (36.0-66.0); PLATELET COUNT, AUTOMATED 215 10^3/uL (150-450); RED BLOOD COUNT 5.07 10^6/uL (4.30-6.10); WHITE BLOOD COUNT 8.9 10^3/uL (4.0-10.0)
[2023-10-16] MEDS: OLANZapine INTRAMUSCULAR 10MG VIAL IM STA ×2 (17:05→18:32)
[2023-10-16] MEDS: MULTIVITAMIN -ADULT INJECTION 10 ML, ZINC/COPPER/MANGANESE/SELENIUM 1 ML in AMINO AC/EL... IV SCH (17:49)
[2023-10-16] MEDS: FAT EMULSION IV 250 ML IV ONE (17:49)
[2023-10-16] MEDS: INSULIN LISPRO (NovoLOG) PER UNIT SC SCH (17:50)
[2023-10-16] MEDS: BISACODYL 10MG SUPP PR PRN (21:20)
[2023-10-17] VITALS (48 sets, daily range): BP systolic 90–164; BP diastolic 53–85; TEMP 99–100.5; O2SAT 92–96
[2023-10-17] MEDS: diphenhydrAMINE 50MG/ML VIAL IV STA (02:16)
[2023-10-17 02:30] LABS: ABG BASE EXCESS -2.3 (-2.0-2.0); ABG HCO3 19.9 MMOL/L (22.0-26.0); ABG O2 SATURATION 97.3 % (95.0-99.0); ABG PARTIAL PRESSURE CO2 28.8 mmHg (35.0-45.0); ABG PARTIAL PRESSURE O2 90.3 mmHg (75.0-100.0); ABG STANDARD HCO3 22.6 MMOL/L. (22.0-26.0); ABG TOTAL CO2 20.8 MMOL/L (23.0-31.0); ABG pH (ARTERIAL) 7.458 UNITS (7.350-7.450)
[2023-10-17] MEDS: LEVALBUTEROL 1.25MG 0.5ML CONCENTRATE NEB NEB ONE (02:35)
[2023-10-17 06:02] LABS: ALBUMIN 2.8 G/DL (3.2-5.2); ALKALINE PHOSPHATASE 71 U/L (46-116); ALT/SGPT 84 U/L (7.0-40); AST/SGOT 82 U/L (<34); BILIRUBIN,TOTAL 4.8 MG/DL (0.3-1.2); BLOOD UREA NITROGEN 34 MG/DL (9-23); CALCIUM LEVEL 8.5 MG/DL (8.3-10.6); CARBON DIOXIDE LEVEL 23 MMOL/L (20-31); CHLORIDE LEVEL 122 MMOL/L (98-107); CREATININE FOR GFR 0.99 MG/DL (0.70-1.30); GLOMERULAR FILTRATION RATE > 60.0 (>42); GLUCOSE, FASTING 159 MG/DL (74-106); MAGNESIUM LEVEL 2.2 MG/DL (1.8-2.4); POTASSIUM SERUM 3.6 MMOL/L (3.5-5.1); SODIUM LEVEL 154 MMOL/L (136-145); TOTAL PROTEIN 5.7 G/DL (5.7-8.2)
[2023-10-17] MEDS: NS 0.45% 1,000 ML IV SCH (11:23)
[2023-10-17] MEDS: LORazepam 2 MG/ML 1ML VIAL IV PRN (11:27)
[2023-10-17] MEDS ORDERED: SODIUM CHLORIDE IV SCH (18:00)
[2023-10-17] MEDS ORDERED: SODIUM ACETATE IV SCH (18:00)
[2023-10-17] MEDS ORDERED: FAT EMULSION IV 250 ML IV ONE (18:00)
[2023-10-17] MEDS ORDERED: INSULIN LISPRO (NovoLOG) PER UNIT SC SCH (18:00)
[2023-10-17] MEDS ORDERED: [UNRECOGNIZED DRUG - OTHER] IV SCH (18:00)
[2023-10-18] VITALS (30 sets, daily range): BP systolic 94–162; BP diastolic 53–83; TEMP 97.7–99.8; O2SAT 94–97
[2023-10-18 05:00] LABS: HEMATOCRIT 48.2 % (42.0-52.0); HEMOGLOBIN 16.1 g/dl (13.5-17.5); MEAN CORPUSCULAR HEMOGLOBIN 34.3 pg (27.0-33.0); MEAN CORPUSCULAR HGB CONC 33.4 g/dl (32.0-36.5); MEAN CORPUSCULAR VOLUME 102.8 fl (80.0-96.0); PLATELET COUNT, AUTOMATED 221 10^3/uL (150-450); RED BLOOD COUNT 4.69 10^6/uL (4.30-6.10); WHITE BLOOD COUNT 10.7 10^3/uL (4.0-10.0)
[2023-10-18 10:28] LABS: LDH LACTATE DEHYDROGENASE 475 U/L (120-246)
[2023-10-18 10:31] LABS: ALBUMIN 2.6 G/DL (3.2-5.2); ALKALINE PHOSPHATASE 78 U/L (46-116); ALT/SGPT 101 U/L (7.0-40); AST/SGOT 93 U/L (<34); BILIRUBIN,TOTAL 4.8 MG/DL (0.3-1.2); BLOOD UREA NITROGEN 22 MG/DL (9-23); CALCIUM LEVEL 8.4 MG/DL (8.3-10.6); CARBON DIOXIDE LEVEL 26 MMOL/L (20-31); CHLORIDE LEVEL 117 MMOL/L (98-107); CHOLESTEROL LEVEL 119 MG/DL (<200); CPK CREATINE PHOSPHOKINASE 120 U/L (46-171); CREATININE FOR GFR 0.74 MG/DL (0.70-1.30); GLOMERULAR FILTRATION RATE > 60.0 (>42); GLUCOSE, FASTING 123 MG/DL (74-106); PHOSPHORUS LEVEL 2.9 MG/DL (2.4-5.1); POTASSIUM SERUM 3.7 MMOL/L (3.5-5.1); SODIUM LEVEL 149 MMOL/L (136-145); TOTAL PROTEIN 5.4 G/DL (5.7-8.2); TRIGLYCERIDES LEVEL 123 MG/DL (<150)
[2023-10-18] MEDS: DOXYCYCLINE HYCLATE 100 MG in D5W MINI-BAG PLUS 100 ML IV SCH (12:22)
[2023-10-19] VITALS (22 sets, daily range): BP systolic 103–176; BP diastolic 58–92; TEMP 96.8–97.5; O2SAT 93–98
[2023-10-19 05:18] LABS: HEMATOCRIT 48.8 % (42.0-52.0); HEMOGLOBIN 16.2 g/dl (13.5-17.5); MEAN CORPUSCULAR HEMOGLOBIN 34.5 pg (27.0-33.0); MEAN CORPUSCULAR HGB CONC 33.2 g/dl (32.0-36.5); MEAN CORPUSCULAR VOLUME 103.8 fl (80.0-96.0); PLATELET COUNT, AUTOMATED 203 10^3/uL (150-450); WHITE BLOOD COUNT 8.5 10^3/uL (4.0-10.0)
[2023-10-19 05:59] LABS: ALBUMIN 2.4 G/DL (3.2-5.2); ALKALINE PHOSPHATASE 88 U/L (46-116); ALT/SGPT 116 U/L (7.0-40); AST/SGOT 101 U/L (<34); BILIRUBIN,TOTAL 4.6 MG/DL (0.3-1.2); BLOOD UREA NITROGEN 24 MG/DL (9-23); CALCIUM LEVEL 8.4 MG/DL (8.3-10.6); CARBON DIOXIDE LEVEL 26 MMOL/L (20-31); CHLORIDE LEVEL 116 MMOL/L (98-107); CREATININE FOR GFR 0.85 MG/DL (0.70-1.30); GLOMERULAR FILTRATION RATE > 60.0 (>42); GLUCOSE, FASTING 80 MG/DL (74-106); POTASSIUM SERUM 3.9 MMOL/L (3.5-5.1); SODIUM LEVEL 148 MMOL/L (136-145); TOTAL PROTEIN 8.2 G/DL (5.7-8.2)
[2023-10-19] MEDS: SODIUM CHLORIDE 0.9% INJ 10 ML SYR IV PRN (06:08)
[2023-10-19] MEDS ORDERED: D5W 1,000 ML IV SCH (08:40)
[2023-10-19] MEDS ORDERED: VARIBAR PUDDING 40% w/v 230ML TUBE As Ordered ONE (10:56)
[2023-10-19] MEDS ORDERED: BARIUM SULFATE 700 MG TABLET (E-Z-DISK) As Ordered ONE (10:56)
[2023-10-19] MEDS ORDERED: E-Z-PAQUE 96% w/w SUSP 176GM BTL As Ordered ONE (10:56)
[2023-10-19] MEDS ORDERED: VARIBAR NECTAR 40% w/v 240ML SUSP BTL As Ordered ONE (10:56)
[2023-10-19] MEDS: ALBUTEROL SULFATE 2.5MG/0.5ML INH NEB SOLN NEB SCH (13:18)
[2023-10-19] MEDS: SODIUM CHLORIDE HYPERTONIC 3% 4ML NEB SOL INH SCH (13:18)
[2023-10-19 14:18] LABS: PHOSPHORUS LEVEL 3.2 MG/DL (2.4-5.1)
[2023-10-19] MEDS: SODIUM CHLORIDE 0.45% 1000 ML IV ONE (16:05)
[2023-10-19] MEDS: HALOPERIDOL 5MG/ML 1ML VIAL IV ONE (16:13)
[2023-10-19] MEDS: METOPROLOL 5 MG/5 ML VIAL IV SCH (16:15)
[2023-10-19] MEDS: MULTIVITAMIN -ADULT INJECTION 10 ML, THIAMINE INJection 100 MG, FOLIC ACID 1 MG in NS 1... IV ONE (16:20)
[2023-10-19] MEDS: hydrALAZINE 20MG/ML 1ML VIAL IV SCH (16:38)
[2023-10-19] MEDS: MULTIVITAMIN -ADULT INJECTION 10 ML, ZINC/COPPER/MANGANESE/SELENIUM 1 ML in AMINO AC/EL... IV SCH (17:40)
[2023-10-19] MEDS: FAT EMULSION IV 250 ML IV ONE (17:41)
[2023-10-19 17:58] LABS: ABG BASE EXCESS -0.9 (-2.0-2.0); ABG O2 SATURATION 97.6 % (95.0-99.0); ABG PARTIAL PRESSURE CO2 28.9 mmHg (35.0-45.0); ABG PARTIAL PRESSURE O2 89.3 mmHg (75.0-100.0); ABG STANDARD HCO3 23.7 MMOL/L. (22.0-26.0); ABG TOTAL CO2 21.9 MMOL/L (23.0-31.0)
[2023-10-19] MEDS: INSULIN LISPRO (NovoLOG) PER UNIT SC SCH (18:00)
[2023-10-19] MEDS ORDERED: dexmedeTOMIDine (4MCG/ML)200MCG/50ML BTL (PRECEDEX) As Ordered ONE (18:29)
[2023-10-19] MEDS ORDERED: METOPROLOL 5 MG/5 ML VIAL IV PRN (20:05)
[2023-10-19] MEDS: diphenhydrAMINE 50MG/ML VIAL IV STA (21:55)
[2023-10-19] MEDS: OLANZapine INTRAMUSCULAR 10MG VIAL IM ONE (23:31)
[2023-10-20] VITALS (29 sets, daily range): BP systolic 114–158; BP diastolic 62–102; TEMP 97–99.7; O2SAT 84–98
[2023-10-20] MEDS ORDERED: LEVALBUTEROL 1.25MG 0.5ML CONCENTRATE NEB INH PRN (00:30)
[2023-10-20] MEDS: SODIUM CHLORIDE HYPERTONIC 3% 4ML NEB SOL INH ONE (01:02)
[2023-10-20] MEDS: ALBUTEROL SULFATE 2.5MG/0.5ML INH NEB SOLN NEB PRN (01:02)
[2023-10-20 05:27] LABS: HEMATOCRIT 47.9 % (42.0-52.0); HEMOGLOBIN 16.4 g/dl (13.5-17.5); MEAN CORPUSCULAR HEMOGLOBIN 34.7 pg (27.0-33.0); MEAN CORPUSCULAR HGB CONC 34.2 g/dl (32.0-36.5); MEAN CORPUSCULAR VOLUME 101.3 fl (80.0-96.0); PLATELET COUNT, AUTOMATED 224 10^3/uL (150-450); RED BLOOD COUNT 4.73 10^6/uL (4.30-6.10); WHITE BLOOD COUNT 8.2 10^3/uL (4.0-10.0)
[2023-10-20 05:53] LABS: PHOSPHORUS LEVEL 3.3 MG/DL (2.4-5.1)
[2023-10-20 05:57] LABS: ALBUMIN 2.6 G/DL (3.2-5.2); ALKALINE PHOSPHATASE 93 U/L (46-116); ALT/SGPT 127 U/L (7.0-40); AST/SGOT 103 U/L (<34); BLOOD UREA NITROGEN 18 MG/DL (9-23); CALCIUM LEVEL 8.3 MG/DL (8.3-10.6); CARBON DIOXIDE LEVEL 25 MMOL/L (20-31); CHLORIDE LEVEL 113 MMOL/L (98-107); CREATININE FOR GFR 0.76 MG/DL (0.70-1.30); GLOMERULAR FILTRATION RATE > 60.0 (>42); GLUCOSE, FASTING 111 MG/DL (74-106); POTASSIUM SERUM 3.6 MMOL/L (3.5-5.1); SODIUM LEVEL 146 MMOL/L (136-145); TOTAL PROTEIN 5.6 G/DL (5.7-8.2)
[2023-10-20] MEDS: **hydrALAZINE HCL** 25 MG TAB PO SCH (17:00)
[2023-10-20] MEDS: methylPREDNISolone 125MG 2ML VIAL IV ONE (17:57)
[2023-10-20] MEDS: IPRATROPIUM 0.5MG/ALBUTEROL 2.5MG INH SOL UD 3ML (DUONEB) NEB SCH (18:00)
[2023-10-20] MEDS: INSULIN LISPRO (NovoLOG) PER UNIT SC SCH (18:00)
[2023-10-20] MEDS: NS 0.45% 1,000 ML IV SCH (18:08)
[2023-10-20] MEDS: AMINO AC/ELECTROLYTE/DEX/CALC 2,000 ML IV SCH (18:49)
[2023-10-20] MEDS: FAT EMULSION IV 250 ML IV ONE (18:49)
[2023-10-20 19:46] LABS: ABG BASE EXCESS -1.3 (-2.0-2.0); ABG HCO3 22.4 MMOL/L (22.0-26.0); ABG O2 SATURATION 95.6 % (95.0-99.0); ABG PARTIAL PRESSURE CO2 34.9 mmHg (35.0-45.0); ABG PARTIAL PRESSURE O2 74.5 mmHg (75.0-100.0); ABG STANDARD HCO3 23.4 MMOL/L. (22.0-26.0); ABG TOTAL CO2 23.5 MMOL/L (23.0-31.0); ABG pH (ARTERIAL) 7.425 UNITS (7.350-7.450)
[2023-10-20] MEDS: LORazepam 2 MG/ML 1ML VIAL IV STA (20:41)
[2023-10-20] MEDS: DOXYCYCLINE HYCLATE 100 MG in D5W MINI-BAG PLUS 100 ML IV SCH (20:44)
[2023-10-20] MEDS: LIDOCAINE 5% (LIDODERM) PATCH TD SCH (20:56)
[2023-10-20] MEDS: ACETAMINOPHEN 650MG SUPP PR PRN (20:57)
[2023-10-20] MEDS ORDERED: DOXYCYCLINE HYCLATE 100MG TABLET PO SCH (21:00)
[2023-10-21] VITALS (16 sets, daily range): BP systolic 107–159; BP diastolic 60–96; TEMP 98.1–100.2; O2SAT 92–98
[2023-10-21 05:28] LABS: ABG HCO3 24.5 MMOL/L (22.0-26.0); ABG O2 SATURATION 99.5 % (95.0-99.0); ABG PARTIAL PRESSURE CO2 43.8 mmHg (35.0-45.0); ABG STANDARD HCO3 23.7 MMOL/L. (22.0-26.0); ABG TOTAL CO2 25.9 MMOL/L (23.0-31.0); ABG pH (ARTERIAL) 7.366 UNITS (7.350-7.450)
[2023-10-21 05:50] LABS: HEMATOCRIT 46.7 % (42.0-52.0); HEMOGLOBIN 15.7 g/dl (13.5-17.5); MEAN CORPUSCULAR HEMOGLOBIN 34.4 pg (27.0-33.0); MEAN CORPUSCULAR HGB CONC 33.6 g/dl (32.0-36.5); MEAN CORPUSCULAR VOLUME 102.2 fl (80.0-96.0); PLATELET COUNT, AUTOMATED 250 10^3/uL (150-450); RED BLOOD COUNT 4.57 10^6/uL (4.30-6.10)
[2023-10-21 06:10] LABS: ALBUMIN 2.6 G/DL (3.2-5.2); ALKALINE PHOSPHATASE 90 U/L (46-116); ALT/SGPT 159 U/L (7.0-40); AST/SGOT 120 U/L (<34); BILIRUBIN,TOTAL 3.3 MG/DL (0.3-1.2); BLOOD UREA NITROGEN 21 MG/DL (9-23); CALCIUM LEVEL 8.6 MG/DL (8.3-10.6); CARBON DIOXIDE LEVEL 26 MMOL/L (20-31); CHLORIDE LEVEL 113 MMOL/L (98-107); CREATININE FOR GFR 0.79 MG/DL (0.70-1.30); GLOMERULAR FILTRATION RATE > 60.0 (>42); GLUCOSE, FASTING 171 MG/DL (74-106); MAGNESIUM LEVEL 2.1 MG/DL (1.8-2.4); POTASSIUM SERUM 4.4 MMOL/L (3.5-5.1); SODIUM LEVEL 144 MMOL/L (136-145); TOTAL PROTEIN 5.3 G/DL (5.7-8.2)
[2023-10-21 06:33] LABS: ATYPICAL LYMPH 1 % (0-5); HYPERSEGMENTED POLYS 2+; LYMPHOCYTES 5 % (16-44); METAMYELOCYTES 1 % (0-0); MONOCYTES 3 % (0-5); MYELOCYTES 1 % (0-0); NEUTROPHILS 89 % (28-66); PLATELET ESTIMATE NORMAL (NORMAL)
[2023-10-21] MEDS: IPRATROPIUM 0.5MG/ALBUTEROL 2.5MG INH SOL UD 3ML (DUONEB) NEB SCH (07:23)
[2023-10-21] MEDS ORDERED: DOXYCYCLINE HYCLATE 100MG TABLET PO SCH (09:00)
[2023-10-21] MEDS ORDERED: CEFDINIR 300 MG CAP (OMNICEF) PO SCH (09:00)
[2023-10-21] MEDS: PIPERACILLIN/TAZOBACTAM SOD 4.5 GM in D5W MINI-BAG PLUS 50 ML IV SCH (09:55)
[2023-10-21 10:54] LABS: LDH LACTATE DEHYDROGENASE 453 U/L (120-246)
[2023-10-21 11:06] LABS: PROCALCITONIN 0.14 ng/ml
[2023-10-21] MEDS: FAT EMULSION IV 250 ML IV ONE (18:35)
[2023-10-21] MEDS: MULTIVITAMIN -ADULT INJECTION 10 ML, ZINC/COPPER/MANGANESE/SELENIUM 1 ML in AMINO AC/EL... IV SCH (18:35)
[2023-10-21] MEDS: INSULIN LISPRO (NovoLOG) PER UNIT SC SCH (18:58)
[2023-10-21] MEDS ORDERED: SODIUM CHLORIDE HYPERTONIC 3% 4ML NEB SOL INH PRN (23:15)
[2023-10-22] VITALS (8 sets, daily range): BP systolic 128–168; BP diastolic 72–94; TEMP 96.8–99.1; O2SAT 94–98
[2023-10-22 06:18] LABS: BASO # 0.1 10^3/uL (0.0-0.2); BASO % 1.3 % (0.0-1.0); EOS # 0.2 10^3/uL (0.0-0.5); EOS % 2.6 % (0.0-3.0); HEMATOCRIT 44.7 % (42.0-52.0); LYMPH # 0.9 10^3/uL (1.5-5.0); LYMPH % 10.1 % (24.0-44.0); MEAN CORPUSCULAR HEMOGLOBIN 34.3 pg (27.0-33.0); MEAN CORPUSCULAR HGB CONC 33.6 g/dl (32.0-36.5); MEAN CORPUSCULAR VOLUME 102.3 fl (80.0-96.0); MONO # 0.8 10^3/uL (0.0-0.8); MONO % 8.9 % (2.0-8.0); NEUTROPHILS # 6.3 10^3/uL (1.5-8.5); NEUTROPHILS % 72.4 % (36.0-66.0); PLATELET COUNT, AUTOMATED 249 10^3/uL (150-450); RED BLOOD COUNT 4.37 10^6/uL (4.30-6.10); WHITE BLOOD COUNT 8.7 10^3/uL (4.0-10.0)
[2023-10-22 06:50] LABS: ALBUMIN 2.5 G/DL (3.2-5.2); ALKALINE PHOSPHATASE 84 U/L (46-116); ALT/SGPT 261 U/L (7.0-40); AST/SGOT 245 U/L (<34); BILIRUBIN,TOTAL 2.6 MG/DL (0.3-1.2); BLOOD UREA NITROGEN 21 MG/DL (9-23); CALCIUM LEVEL 8.2 MG/DL (8.3-10.6); CARBON DIOXIDE LEVEL 27 MMOL/L (20-31); CHLORIDE LEVEL 111 MMOL/L (98-107); CREATININE FOR GFR 0.79 MG/DL (0.70-1.30); GLOMERULAR FILTRATION RATE > 60.0 (>42); GLUCOSE, FASTING 136 MG/DL (74-106); PHOSPHORUS LEVEL 2.8 MG/DL (2.4-5.1); POTASSIUM SERUM 3.8 MMOL/L (3.5-5.1); SODIUM LEVEL 143 MMOL/L (136-145); TOTAL PROTEIN 4.9 G/DL (5.7-8.2)
[2023-10-22] MEDS: METOPROLOL 5 MG/5 ML VIAL IV SCH (12:00)
[2023-10-22] MEDS: NS 0.45% 1,000 ML IV SCH (12:53)
[2023-10-22] MEDS: hydrALAZINE 20MG/ML 1ML VIAL IV SCH (13:35)
[2023-10-22 13:37] LABS: ABG BASE EXCESS 1.5 (-2.0-2.0); ABG HCO3 26.1 MMOL/L (22.0-26.0); ABG O2 SATURATION 95.6 % (95.0-99.0); ABG PARTIAL PRESSURE CO2 40.9 mmHg (35.0-45.0); ABG STANDARD HCO3 25.7 MMOL/L. (22.0-26.0); ABG TOTAL CO2 27.3 MMOL/L (23.0-31.0); ABG pH (ARTERIAL) 7.422 UNITS (7.350-7.450)
[2023-10-22] MEDS: LACTULOSE 20GM/30ML SYRUP UDC PR ONE (15:26)
[2023-10-22] MEDS: INSULIN LISPRO (NovoLOG) PER UNIT SC SCH (18:09)
[2023-10-22] MEDS: AMINO AC/ELECTROLYTE/DEX/CALC 2,000 ML IV SCH (18:10)
[2023-10-22] MEDS: FAT EMULSION IV 250 ML IV ONE (18:11)
[2023-10-23] VITALS (8 sets, daily range): BP systolic 102–164; BP diastolic 57–86; TEMP 97.8–98.8; O2SAT 90–96
[2023-10-23] MEDS: ALBUTEROL SULFATE 2.5MG/0.5ML INH NEB SOLN NEB PRN (02:59)
[2023-10-23 06:31] LABS: BASO # 0.2 10^3/uL (0.0-0.2); BASO % 1.4 % (0.0-1.0); EOS # 0.4 10^3/uL (0.0-0.5); EOS % 3.3 % (0.0-3.0); HEMATOCRIT 42.5 % (42.0-52.0); HEMOGLOBIN 14.5 g/dl (13.5-17.5); LYMPH # 1.1 10^3/uL (1.5-5.0); LYMPH % 10.8 % (24.0-44.0); MEAN CORPUSCULAR HEMOGLOBIN 34.7 pg (27.0-33.0); MEAN CORPUSCULAR HGB CONC 34.1 g/dl (32.0-36.5); MEAN CORPUSCULAR VOLUME 101.7 fl (80.0-96.0); MONO # 0.9 10^3/uL (0.0-0.8); MONO % 8.4 % (2.0-8.0); NEUTROPHILS # 7.4 10^3/uL (1.5-8.5); NEUTROPHILS % 70.6 % (36.0-66.0); PLATELET COUNT, AUTOMATED 248 10^3/uL (150-450); RED BLOOD COUNT 4.18 10^6/uL (4.30-6.10); WHITE BLOOD COUNT 10.5 10^3/uL (4.0-10.0)
[2023-10-23 07:08] LABS: ALBUMIN 2.3 G/DL (3.2-5.2); ALKALINE PHOSPHATASE 77 U/L (46-116); ALT/SGPT 223 U/L (7.0-40); AST/SGOT 139 U/L (<34); BILIRUBIN,TOTAL 2.1 MG/DL (0.3-1.2); BLOOD UREA NITROGEN 15 MG/DL (9-23); CALCIUM LEVEL 8.3 MG/DL (8.3-10.6); CARBON DIOXIDE LEVEL 27 MMOL/L (20-31); CHLORIDE LEVEL 106 MMOL/L (98-107); CREATININE FOR GFR 0.79 MG/DL (0.70-1.30); GLOMERULAR FILTRATION RATE > 60.0 (>42); GLUCOSE, FASTING 138 MG/DL (74-106); MAGNESIUM LEVEL 1.9 MG/DL (1.8-2.4); PHOSPHORUS LEVEL 3.4 MG/DL (2.4-5.1); POTASSIUM SERUM 3.8 MMOL/L (3.5-5.1); SODIUM LEVEL 138 MMOL/L (136-145)
[2023-10-23] MEDS: FUROSEMIDE 100MG/10ML VIAL IV ONE (11:16)
[2023-10-23 13:20] LABS: LDH LACTATE DEHYDROGENASE 383 U/L (120-246)
[2023-10-23 14:19] LABS: TOTAL PROTEIN 5.4 G/DL (5.7-8.2)
[2023-10-23] MEDS: AMINO AC/ELECTROLYTE/DEX/CALC 1,000 ML IV SCH (15:11)
[2023-10-23] MEDS: diphenhydrAMINE 50MG/ML VIAL IV ONE (15:26)
[2023-10-23] MEDS: IPRATROPIUM 0.5MG/ALBUTEROL 2.5MG INH SOL UD 3ML (DUONEB) NEB ONE (16:17)
[2023-10-23] MEDS: FAT EMULSION IV 250 ML IV ONE (18:12)
[2023-10-23] MEDS: MULTIVITAMIN -ADULT INJECTION 10 ML, ZINC/COPPER/MANGANESE/SELENIUM 1 ML in AMINO AC/EL... IV SCH (18:12)
[2023-10-23] MEDS: INSULIN LISPRO (NovoLOG) PER UNIT SC SCH (18:13)
[2023-10-24] VITALS (13 sets, daily range): BP systolic 128–168; BP diastolic 59–78; TEMP 97.1–98.7; O2SAT 90–97
[2023-10-24] MEDS ORDERED: MIDAZOLAM INJ 2MG/2ML VIAL As Ordered ONE (08:30)
[2023-10-24] MEDS ORDERED: propofoL 200 MG/20 ML VIAL As Ordered ONE (08:30)
[2023-10-24] MEDS ORDERED: fentaNYL 100 MCG/2 ML INJECTION As Ordered ONE (08:30)
[2023-10-24] MEDS ORDERED: LIDOCAINE 2% 100MG/5ML SDV (FOR ANES.) As Ordered ONE (08:30)
[2023-10-24] MEDS ORDERED: ONDANSETRON 4MG 2ML VIAL As Ordered ONE (08:47)
[2023-10-24] MEDS ORDERED: SUGAMMADEX SODIUM 500 MG/5 ML VIAL (BRIDION) As Ordered ONE (08:48)
[2023-10-24] MEDS ORDERED: fentaNYL 100 MCG/2 ML INJECTION IV PRN (09:00)
[2023-10-24] MEDS ORDERED: ONDANSETRON 4MG 2ML VIAL IV PRN (09:00)
[2023-10-24] MEDS ORDERED: HYDROMORPHONE HCL 0.5 MG/ 0.5 ML SYRINGE IV PRN (09:00)
[2023-10-24] MEDS ORDERED: oxyCODONE 5MG TAB PO PRN (09:00)
[2023-10-24] MEDS: LR 1,000 ML IV SCH (10:28)
[2023-10-24] MEDS: INSULIN LISPRO (NovoLOG) PER UNIT SC SCH (17:34)
[2023-10-24] MEDS: FAT EMULSION IV 250 ML IV ONE (18:37)
[2023-10-24] MEDS: AMINO AC/ELECTROLYTE/DEX/CALC 2,000 ML IV SCH (18:37)
[2023-10-25 03:37] VITALS: BP 130/51; TEMP 98.4; O2SAT 92
[2023-10-25 05:56] LABS: BASO # 0.2 10^3/uL (0.0-0.2); BASO % 1.2 % (0.0-1.0); EOS # 0.3 10^3/uL (0.0-0.5); EOS % 2.4 % (0.0-3.0); HEMATOCRIT 45.5 % (42.0-52.0); HEMOGLOBIN 15.3 g/dl (13.5-17.5); LYMPH % 7.7 % (24.0-44.0); MEAN CORPUSCULAR HEMOGLOBIN 34.2 pg (27.0-33.0); MEAN CORPUSCULAR HGB CONC 33.6 g/dl (32.0-36.5); MEAN CORPUSCULAR VOLUME 101.8 fl (80.0-96.0); MONO # 0.9 10^3/uL (0.0-0.8); MONO % 6.8 % (2.0-8.0); NEUTROPHILS % 77.5 % (36.0-66.0); PLATELET COUNT, AUTOMATED 287 10^3/uL (150-450); RED BLOOD COUNT 4.47 10^6/uL (4.30-6.10); WHITE BLOOD COUNT 12.9 10^3/uL (4.0-10.0)
[2023-10-25 06:24] LABS: ALBUMIN 2.5 G/DL (3.2-5.2); ALKALINE PHOSPHATASE 88 U/L (46-116); ALT/SGPT 243 U/L (7.0-40); AST/SGOT 128 U/L (<34); BILIRUBIN,TOTAL 1.9 MG/DL (0.3-1.2); BLOOD UREA NITROGEN 23 MG/DL (9-23); CALCIUM LEVEL 8.5 MG/DL (8.3-10.6); CARBON DIOXIDE LEVEL 29 MMOL/L (20-31); CHLORIDE LEVEL 105 MMOL/L (98-107); CREATININE FOR GFR 0.81 MG/DL (0.70-1.30); GLOMERULAR FILTRATION RATE > 60.0 (>42); GLUCOSE, FASTING 152 MG/DL (74-106); POTASSIUM SERUM 4.1 MMOL/L (3.5-5.1); SODIUM LEVEL 138 MMOL/L (136-145); TOTAL PROTEIN 5.2 G/DL (5.7-8.2)
[2023-10-25 07:28] VITALS: BP 129/58; TEMP 98.9; O2SAT 96
[2023-10-25 09:04] LABS: ERYTHROCYTE SEDIMENTATION RATE 41 mm/hr (0-20)
[2023-10-25 09:23] LABS: PROCALCITONIN 0.15 ng/ml
[2023-10-25] MEDS: ENOXAPARIN 40MG/0.4ML SYRINGE (J1650 PER 10MG) SC SCH (09:29)
[2023-10-25 09:34] VITALS: O2SAT 94
[2023-10-25 11:52] VITALS: BP 138/60; TEMP 98.4; O2SAT 94
[2023-10-25] MEDS: AMINO AC/ELECTROLYTE/DEX/CALC 1,000 ML IV SCH (14:55)
[2023-10-25 16:00] VITALS: BP 135/63; TEMP 97.4; O2SAT 96
[2023-10-25] MEDS: FAT EMULSION IV 250 ML IV ONE (17:46)
[2023-10-25] MEDS: INSULIN LISPRO (NovoLOG) PER UNIT SC SCH (17:47)
[2023-10-25 19:35] VITALS: BP 118/65; TEMP 98.5; O2SAT 95
[2023-10-26] MEDS: AMINO AC/ELECTROLYTE/DEX/CALC 2,000 ML IV SCH (00:53)
[2023-10-26 03:11] VITALS: BP 111/68; TEMP 98.4; O2SAT 94
[2023-10-26 05:57] LABS: BASO # 0.2 10^3/uL (0.0-0.2); BASO % 1.4 % (0.0-1.0); EOS # 0.3 10^3/uL (0.0-0.5); EOS % 1.9 % (0.0-3.0); HEMATOCRIT 47.1 % (42.0-52.0); HEMOGLOBIN 15.9 g/dl (13.5-17.5); LYMPH # 0.8 10^3/uL (1.5-5.0); LYMPH % 5.5 % (24.0-44.0); MEAN CORPUSCULAR HEMOGLOBIN 34.1 pg (27.0-33.0); MEAN CORPUSCULAR HGB CONC 33.8 g/dl (32.0-36.5); MEAN CORPUSCULAR VOLUME 101.1 fl (80.0-96.0); MONO # 1.1 10^3/uL (0.0-0.8); MONO % 7.5 % (2.0-8.0); NEUTROPHILS # 11.2 10^3/uL (1.5-8.5); NEUTROPHILS % 79.8 % (36.0-66.0); PLATELET COUNT, AUTOMATED 314 10^3/uL (150-450); RED BLOOD COUNT 4.66 10^6/uL (4.30-6.10)
[2023-10-26 06:21] VITALS: BP 119/64; TEMP 97.9; O2SAT 95
[2023-10-26 14:00] VITALS: BP 155/98; TEMP 98.4; O2SAT 92
[2023-10-26 18:44] VITALS: BP 130/86; TEMP 98.8
[2023-10-26 20:00] VITALS: BP 147/70; TEMP 98.8; O2SAT 93
[2023-10-27 05:58] LABS: BASO # 0.2 10^3/uL (0.0-0.2); BASO % 1.4 % (0.0-1.0); EOS # 0.2 10^3/uL (0.0-0.5); HEMATOCRIT 46.7 % (42.0-52.0); HEMOGLOBIN 15.7 g/dl (13.5-17.5); LYMPH # 0.7 10^3/uL (1.5-5.0); LYMPH % 6.1 % (24.0-44.0); MEAN CORPUSCULAR HEMOGLOBIN 34.1 pg (27.0-33.0); MEAN CORPUSCULAR HGB CONC 33.6 g/dl (32.0-36.5); MEAN CORPUSCULAR VOLUME 101.5 fl (80.0-96.0); MONO # 0.6 10^3/uL (0.0-0.8); MONO % 5.4 % (2.0-8.0); NEUTROPHILS # 9.5 10^3/uL (1.5-8.5); NEUTROPHILS % 80.8 % (36.0-66.0); PLATELET COUNT, AUTOMATED 311 10^3/uL (150-450); WHITE BLOOD COUNT 11.7 10^3/uL (4.0-10.0)
[2023-10-27 06:01] VITALS: BP 152/84; TEMP 98.7; O2SAT 94
[2023-10-27 10:35] LABS: IONIZED CALCIUM 4.6 MG/DL (4.5-5.3)
[2023-10-27 10:40] LABS: HEMATOCRIT 46.7 % (42.0-52.0); HEMOGLOBIN 15.9 g/dl (13.5-17.5); MEAN CORPUSCULAR HEMOGLOBIN 34.3 pg (27.0-33.0); MEAN CORPUSCULAR VOLUME 100.9 fl (80.0-96.0); PLATELET COUNT, AUTOMATED 314 10^3/uL (150-450); RED BLOOD COUNT 4.63 10^6/uL (4.30-6.10); WHITE BLOOD COUNT 11.9 10^3/uL (4.0-10.0)
[2023-10-27 10:50] LABS: ERYTHROCYTE SEDIMENTATION RATE 79 mm/hr (0-20)
[2023-10-27 11:09] LABS: ATYPICAL LYMPH 6 % (0-5); BASOPHILS 1 % (0-1); EOSINOPHILS 1 % (0-3); MONOCYTES 6 % (0-5); NEUTROPHILS 86 % (28-66)
[2023-10-27 11:10] LABS: GIANT PLATELETS 1+; PLATELET ESTIMATE NORMAL (NORMAL); SMUDGE CELLS 1+; TOXIC VACUOLATION 1+
[2023-10-27 11:43] LABS: PROCALCITONIN 0.18 ng/ml
[2023-10-27 11:48] LABS: BASO # 0.2 10^3/uL (0.0-0.2); EOS # 0.2 10^3/uL (0.0-0.5); EOS % 1.6 % (0.0-3.0); LYMPH # 0.6 10^3/uL (1.5-5.0); MONO # 0.6 10^3/uL (0.0-0.8); MONO % 5.2 % (2.0-8.0); NEUTROPHILS # 9.7 10^3/uL (1.5-8.5); NEUTROPHILS % 81.4 % (36.0-66.0)
[2023-10-27 11:49] LABS: MAGNESIUM LEVEL 2.1 MG/DL (1.8-2.4); PHOSPHORUS LEVEL 3.2 MG/DL (2.4-5.1)
[2023-10-27 11:53] LABS: ALBUMIN 2.5 G/DL (3.2-5.2); ALKALINE PHOSPHATASE 135 U/L (46-116); ALT/SGPT 207 U/L (7.0-40); AST/SGOT 96 U/L (<34); BILIRUBIN,TOTAL 2.7 MG/DL (0.3-1.2); BLOOD UREA NITROGEN 21 MG/DL (9-23); CALCIUM LEVEL 8.7 MG/DL (8.3-10.6); CARBON DIOXIDE LEVEL 27 MMOL/L (20-31); CHLORIDE LEVEL 103 MMOL/L (98-107); CREATININE FOR GFR 0.87 MG/DL (0.70-1.30); GLOMERULAR FILTRATION RATE > 60.0 (>42); GLUCOSE, FASTING 136 MG/DL (74-106); POTASSIUM SERUM 4.4 MMOL/L (3.5-5.1); SODIUM LEVEL 136 MMOL/L (136-145); TOTAL PROTEIN 5.6 G/DL (5.7-8.2)
[2023-10-27 14:00] VITALS: BP 138/91; TEMP 98.6; O2SAT 92
[2023-10-27 21:20] VITALS: BP 110/63; TEMP 100.2; O2SAT 91
[2023-10-28 02:00] VITALS: TEMP 99.5
[2023-10-28 06:11] VITALS: BP 144/83; TEMP 97.9; O2SAT 90
[2023-10-28 07:00] LABS: ALBUMIN 2.5 G/DL (3.2-5.2); ALKALINE PHOSPHATASE 141 U/L (46-116); ALT/SGPT 173 U/L (7.0-40); AST/SGOT 70 U/L (<34); BILIRUBIN,TOTAL 2.3 MG/DL (0.3-1.2); BLOOD UREA NITROGEN 21 MG/DL (9-23); CALCIUM LEVEL 8.4 MG/DL (8.3-10.6); CARBON DIOXIDE LEVEL 28 MMOL/L (20-31); CHLORIDE LEVEL 104 MMOL/L (98-107); GLOMERULAR FILTRATION RATE > 60.0 (>42); GLUCOSE, FASTING 137 MG/DL (74-106); MAGNESIUM LEVEL 2.1 MG/DL (1.8-2.4); PHOSPHORUS LEVEL 2.9 MG/DL (2.4-5.1); POTASSIUM SERUM 4.7 MMOL/L (3.5-5.1); SODIUM LEVEL 137 MMOL/L (136-145); TOTAL PROTEIN 5.6 G/DL (5.7-8.2)
[2023-10-28] MEDS ORDERED: PIPERACILLIN/TAZOBACTAM SOD 3.375 GM in D5W MINI-BAG PLUS 50 ML IV SCH (08:45)
[2023-10-28 09:39] LABS: BASO # 0.2 10^3/uL (0.0-0.2); BASO % 1.8 % (0.0-1.0); EOS # 0.2 10^3/uL (0.0-0.5); EOS % 1.9 % (0.0-3.0); HEMATOCRIT 47.1 % (42.0-52.0); HEMOGLOBIN 15.7 g/dl (13.5-17.5); LYMPH # 0.8 10^3/uL (1.5-5.0); LYMPH % 6.9 % (24.0-44.0); MEAN CORPUSCULAR HEMOGLOBIN 34.1 pg (27.0-33.0); MEAN CORPUSCULAR HGB CONC 33.3 g/dl (32.0-36.5); MEAN CORPUSCULAR VOLUME 102.2 fl (80.0-96.0); MONO # 0.5 10^3/uL (0.0-0.8); MONO % 4.7 % (2.0-8.0); NEUTROPHILS # 8.8 10^3/uL (1.5-8.5); NEUTROPHILS % 80.2 % (36.0-66.0); PLATELET COUNT, AUTOMATED 312 10^3/uL (150-450); RED BLOOD COUNT 4.61 10^6/uL (4.30-6.10)
[2023-10-28 09:52] LABS: PROCALCITONIN 0.21 ng/ml
[2023-10-28] MEDS: PIPERACILLIN/TAZOBACTAM SOD 4.5 GM in D5W MINI-BAG PLUS 50 ML IV SCH (10:05)
[2023-10-28 10:56] LABS: ERYTHROCYTE SEDIMENTATION RATE 84 mm/hr (0-20)
[2023-10-28 17:30] VITALS: BP 143/84; TEMP 98.2; O2SAT 90
[2023-10-28 20:49] VITALS: O2SAT 93
[2023-10-28 22:00] VITALS: BP 149/92; TEMP 98.2; O2SAT 92
[2023-10-28] MEDS: SODIUM CHLORIDE 0.9% 1000ML IV STA (23:22)
[2023-10-29] VITALS (7 sets, daily range): BP systolic 139–155; BP diastolic 57–87; TEMP 98.1–98.8; O2SAT 86–96
[2023-10-29 06:54] LABS: ALBUMIN 2.3 G/DL (3.2-5.2); ALKALINE PHOSPHATASE 126 U/L (46-116); ALT/SGPT 130 U/L (7.0-40); AST/SGOT 47 U/L (<34); BILIRUBIN,TOTAL 1.6 MG/DL (0.3-1.2); BLOOD UREA NITROGEN 17 MG/DL (9-23); CALCIUM LEVEL 8.2 MG/DL (8.3-10.6); CARBON DIOXIDE LEVEL 26 MMOL/L (20-31); CHLORIDE LEVEL 107 MMOL/L (98-107); CREATININE FOR GFR 0.82 MG/DL (0.70-1.30); GLOMERULAR FILTRATION RATE > 60.0 (>42); GLUCOSE, FASTING 131 MG/DL (74-106); POTASSIUM SERUM 4.5 MMOL/L (3.5-5.1); SODIUM LEVEL 138 MMOL/L (136-145); TOTAL PROTEIN 5.2 G/DL (5.7-8.2)
[2023-10-29] MEDS ORDERED: GASTROGRAFIN SOLUTION 30ML PO ONE (16:05)
[2023-10-29] MEDS: GASTROGRAFIN SOLUTION 30ML PO ONE (16:15)
[2023-10-29] MEDS: OMEPRAZOLE/SODIUM BICARB 20-840MG 10ML ORAL SYRINGE GT SCH (17:21)
[2023-10-29] MEDS: AUGMENTIN 875 MG TAB PO SCH (20:52)
[2023-10-30 05:50] VITALS: BP 128/75; TEMP 97.9; O2SAT 95
[2023-10-30 07:20] LABS: ALBUMIN 2.6 G/DL (3.2-5.2); ALKALINE PHOSPHATASE 121 U/L (46-116); ALT/SGPT 117 U/L (7.0-40); AST/SGOT 45 U/L (<34); BILIRUBIN,TOTAL 1.6 MG/DL (0.3-1.2); BLOOD UREA NITROGEN 14 MG/DL (9-23); CALCIUM LEVEL 8.9 MG/DL (8.3-10.6); CARBON DIOXIDE LEVEL 29 MMOL/L (20-31); CHLORIDE LEVEL 105 MMOL/L (98-107); CREATININE FOR GFR 0.73 MG/DL (0.70-1.30); GLOMERULAR FILTRATION RATE > 60.0 (>42); GLUCOSE, FASTING 91 MG/DL (74-106); MAGNESIUM LEVEL 2.1 MG/DL (1.8-2.4); POTASSIUM SERUM 4.6 MMOL/L (3.5-5.1); SODIUM LEVEL 138 MMOL/L (136-145); TOTAL PROTEIN 5.6 G/DL (5.7-8.2)
[2023-10-30 08:28] VITALS: O2SAT 94
[2023-10-30 10:15] VITALS: O2SAT 88
[2023-10-30 10:32] VITALS: O2SAT 91
[2023-10-30 12:51] VITALS: O2SAT 93
[2023-10-31 06:00] VITALS: BP 170/96; TEMP 97.9; O2SAT 90
[2023-10-31 06:24] LABS: ALBUMIN 2.7 G/DL (3.2-5.2); ALKALINE PHOSPHATASE 118 U/L (46-116); ALT/SGPT 116 U/L (7.0-40); AST/SGOT 50 U/L (<34); BILIRUBIN,TOTAL 1.6 MG/DL (0.3-1.2); BLOOD UREA NITROGEN 17 MG/DL (9-23); CARBON DIOXIDE LEVEL 28 MMOL/L (20-31); CHLORIDE LEVEL 104 MMOL/L (98-107); CREATININE FOR GFR 0.72 MG/DL (0.70-1.30); GLOMERULAR FILTRATION RATE > 60.0 (>42); GLUCOSE, FASTING 101 MG/DL (74-106); MAGNESIUM LEVEL 2.1 MG/DL (1.8-2.4); POTASSIUM SERUM 4.4 MMOL/L (3.5-5.1); SODIUM LEVEL 136 MMOL/L (136-145); TOTAL PROTEIN 5.9 G/DL (5.7-8.2)
[2023-11-01 06:00] VITALS: BP 150/86; TEMP 98.1; O2SAT 92
[2023-11-01 06:42] LABS: ALBUMIN 2.9 G/DL (3.2-5.2); ALKALINE PHOSPHATASE 118 U/L (46-116); ALT/SGPT 115 U/L (7.0-40); AST/SGOT 55 U/L (<34); BILIRUBIN,TOTAL 1.5 MG/DL (0.3-1.2); BLOOD UREA NITROGEN 16 MG/DL (9-23); CALCIUM LEVEL 9.4 MG/DL (8.3-10.6); CARBON DIOXIDE LEVEL 27 MMOL/L (20-31); CHLORIDE LEVEL 102 MMOL/L (98-107); GLOMERULAR FILTRATION RATE > 60.0 (>42); GLUCOSE, FASTING 113 MG/DL (74-106); MAGNESIUM LEVEL 2.2 MG/DL (1.8-2.4); PHOSPHORUS LEVEL 3.3 MG/DL (2.4-5.1); POTASSIUM SERUM 4.5 MMOL/L (3.5-5.1); SODIUM LEVEL 135 MMOL/L (136-145); TOTAL PROTEIN 6.3 G/DL (5.7-8.2)
[2023-11-01] MEDS ORDERED: diphenhydrAMINE 50MG/ML VIAL IV PRN (18:10)
[2023-11-01] MEDS ORDERED: HALOPERIDOL 5MG/ML 1ML VIAL IV PRN (18:10)
[2023-11-01] MEDS: OLANZapine INTRAMUSCULAR 10MG VIAL IM ONE (18:28)
[2023-11-02 06:00] VITALS: BP 149/82; TEMP 98.1; O2SAT 95
[2023-11-02 07:05] LABS: ALKALINE PHOSPHATASE 113 U/L (46-116); ALT/SGPT 128 U/L (7.0-40); AST/SGOT 60 U/L (<34); BILIRUBIN,TOTAL 1.2 MG/DL (0.3-1.2); BLOOD UREA NITROGEN 21 MG/DL (9-23); CALCIUM LEVEL 9.4 MG/DL (8.3-10.6); CARBON DIOXIDE LEVEL 30 MMOL/L (20-31); CHLORIDE LEVEL 103 MMOL/L (98-107); CREATININE FOR GFR 0.82 MG/DL (0.70-1.30); GLOMERULAR FILTRATION RATE > 60.0 (>42); GLUCOSE, FASTING 100 MG/DL (74-106); MAGNESIUM LEVEL 2.3 MG/DL (1.8-2.4); POTASSIUM SERUM 4.8 MMOL/L (3.5-5.1); SODIUM LEVEL 139 MMOL/L (136-145); TOTAL PROTEIN 6.3 G/DL (5.7-8.2)
[2023-11-02 15:38] LABS: BASO # 0.2 10^3/uL (0.0-0.2); BASO % 1.9 % (0.0-1.0); EOS # 0.2 10^3/uL (0.0-0.5); EOS % 1.9 % (0.0-3.0); HEMATOCRIT 50.2 % (42.0-52.0); LYMPH # 1.1 10^3/uL (1.5-5.0); LYMPH % 11.2 % (24.0-44.0); MEAN CORPUSCULAR HEMOGLOBIN 34.1 pg (27.0-33.0); MEAN CORPUSCULAR HGB CONC 33.9 g/dl (32.0-36.5); MEAN CORPUSCULAR VOLUME 100.6 fl (80.0-96.0); MONO # 0.9 10^3/uL (0.0-0.8); MONO % 9.1 % (2.0-8.0); NEUTROPHILS # 7.2 10^3/uL (1.5-8.5); NEUTROPHILS % 72.6 % (36.0-66.0); PLATELET COUNT, AUTOMATED 381 10^3/uL (150-450); RED BLOOD COUNT 4.99 10^6/uL (4.30-6.10); WHITE BLOOD COUNT 9.9 10^3/uL (4.0-10.0)
[2023-11-02 15:47] LABS: ERYTHROCYTE SEDIMENTATION RATE 79 mm/hr (0-20)
[2023-11-02 15:54] LABS: ALBUMIN 2.9 G/DL (3.2-5.2); ALKALINE PHOSPHATASE 111 U/L (46-116); ALT/SGPT 123 U/L (7.0-40); AST/SGOT 58 U/L (<34); BILIRUBIN,TOTAL 1.1 MG/DL (0.3-1.2); BLOOD UREA NITROGEN 22 MG/DL (9-23); CALCIUM LEVEL 9.2 MG/DL (8.3-10.6); CARBON DIOXIDE LEVEL 29 MMOL/L (20-31); CHLORIDE LEVEL 102 MMOL/L (98-107); CREATININE FOR GFR 0.78 MG/DL (0.70-1.30); GLOMERULAR FILTRATION RATE > 60.0 (>42); GLUCOSE, FASTING 110 MG/DL (74-106); SODIUM LEVEL 135 MMOL/L (136-145); TOTAL PROTEIN 6.3 G/DL (5.7-8.2)
[2023-11-02 16:05] LABS: PROCALCITONIN 0.16 ng/ml
[2023-11-02 19:43] VITALS: O2SAT 92
[2023-11-02 19:48] VITALS: O2SAT 92
[2023-11-02 21:37] VITALS: O2SAT 91
[2023-11-02 22:18] VITALS: BP 137/82; TEMP 99; O2SAT 91
[2023-11-02 22:20] VITALS: TEMP 99.5
[2023-11-03] VITALS (8 sets, daily range): BP systolic 147–149; BP diastolic 94–95; TEMP 98.1–99.2; O2SAT 70–94
[2023-11-03] MEDS: NS 500 ML IV ONE (01:13)
[2023-11-03 07:20] LABS: ALBUMIN 2.9 G/DL (3.2-5.2); ALKALINE PHOSPHATASE 102 U/L (46-116); ALT/SGPT 127 U/L (7.0-40); AST/SGOT 60 U/L (<34); BILIRUBIN,TOTAL 1.1 MG/DL (0.3-1.2); BLOOD UREA NITROGEN 25 MG/DL (9-23); CALCIUM LEVEL 9.1 MG/DL (8.3-10.6); CARBON DIOXIDE LEVEL 31 MMOL/L (20-31); CHLORIDE LEVEL 104 MMOL/L (98-107); CREATININE FOR GFR 0.83 MG/DL (0.70-1.30); GLOMERULAR FILTRATION RATE > 60.0 (>42); GLUCOSE, FASTING 105 MG/DL (74-106); MAGNESIUM LEVEL 2.2 MG/DL (1.8-2.4); PHOSPHORUS LEVEL 3.9 MG/DL (2.4-5.1); POTASSIUM SERUM 4.6 MMOL/L (3.5-5.1); SODIUM LEVEL 140 MMOL/L (136-145)
[2023-11-03] MEDS: LACTULOSE 20GM/30ML SYRUP UDC PO SCH (09:51)
[2023-11-03] MEDS: ACETYLCYSTEINE 10% 30ML VIAL INH SCH (21:03)
[2023-11-04 06:00] VITALS: BP 158/96; TEMP 98.4; O2SAT 94
[2023-11-04 06:33] LABS: BASO # 0.1 10^3/uL (0.0-0.2); BASO % 1.9 % (0.0-1.0); EOS # 0.3 10^3/uL (0.0-0.5); EOS % 4.1 % (0.0-3.0); HEMATOCRIT 48.2 % (42.0-52.0); HEMOGLOBIN 16.3 g/dl (13.5-17.5); LYMPH # 1.2 10^3/uL (1.5-5.0); LYMPH % 15.8 % (24.0-44.0); MEAN CORPUSCULAR HEMOGLOBIN 34.4 pg (27.0-33.0); MEAN CORPUSCULAR HGB CONC 33.8 g/dl (32.0-36.5); MEAN CORPUSCULAR VOLUME 101.7 fl (80.0-96.0); MONO # 0.8 10^3/uL (0.0-0.8); MONO % 10.8 % (2.0-8.0); NEUTROPHILS # 4.8 10^3/uL (1.5-8.5); NEUTROPHILS % 63.5 % (36.0-66.0); PLATELET COUNT, AUTOMATED 335 10^3/uL (150-450); RED BLOOD COUNT 4.74 10^6/uL (4.30-6.10); WHITE BLOOD COUNT 7.5 10^3/uL (4.0-10.0)
[2023-11-04 06:54] LABS: BLOOD UREA NITROGEN 21 MG/DL (9-23); CARBON DIOXIDE LEVEL 30 MMOL/L (20-31); CHLORIDE LEVEL 103 MMOL/L (98-107); CREATININE FOR GFR 0.82 MG/DL (0.70-1.30); GLOMERULAR FILTRATION RATE > 60.0 (>42); GLUCOSE, FASTING 94 MG/DL (74-106); MAGNESIUM LEVEL 2.3 MG/DL (1.8-2.4); PHOSPHORUS LEVEL 3.6 MG/DL (2.4-5.1); POTASSIUM SERUM 4.5 MMOL/L (3.5-5.1); SODIUM LEVEL 138 MMOL/L (136-145)
[2023-11-04 10:00] VITALS: O2SAT 93
[2023-11-04 11:00] VITALS: O2SAT 95
[2023-11-04 14:00] VITALS: BP 139/88; TEMP 98.2; O2SAT 93
[2023-11-04 17:13] VITALS: O2SAT 94
[2023-11-04 20:44] VITALS: BP 152/89; TEMP 98.4; O2SAT 94
[2023-11-05 05:49] VITALS: BP 147/93; TEMP 99; O2SAT 95
[2023-11-05 14:00] VITALS: BP 143/90; TEMP 98.1; O2SAT 93
[2023-11-05] MEDS: FUROSEMIDE 40MG/4ML VIAL IV ONE (14:27)
[2023-11-05] MEDS: ACETAMINOPHEN TAB 650MG DOSE (2X325MG) PEG PRN (16:21)
[2023-11-05 21:00] VITALS: BP 134/86; TEMP 97.9; O2SAT 92
[2023-11-05] MEDS: NYSTATIN 100,000 UNITS/GM TOPICAL PWD 15GM TOP SCH (21:41)
[2023-11-05 23:55] VITALS: O2SAT 82
[2023-11-05 23:56] VITALS: O2SAT 92
[2023-11-06] VITALS (8 sets, daily range): BP systolic 142–160; BP diastolic 90–111; TEMP 97.5–98.1; O2SAT 87–94
[2023-11-06] MEDS: FUROSEMIDE 40MG/4ML VIAL IV ONE (15:21)
[2023-11-07 04:56] VITALS: BP 153/97; TEMP 97.9; O2SAT 94
[2023-11-07 06:09] LABS: HEMATOCRIT 50.5 % (42.0-52.0); HEMOGLOBIN 16.8 g/dl (13.5-17.5); MEAN CORPUSCULAR HEMOGLOBIN 33.3 pg (27.0-33.0); MEAN CORPUSCULAR HGB CONC 33.3 g/dl (32.0-36.5); MEAN CORPUSCULAR VOLUME 100.2 fl (80.0-96.0); PLATELET COUNT, AUTOMATED 276 10^3/uL (150-450); RED BLOOD COUNT 5.04 10^6/uL (4.30-6.10); WHITE BLOOD COUNT 5.9 10^3/uL (4.0-10.0)
[2023-11-07 06:38] LABS: ALBUMIN 3.1 G/DL (3.2-5.2); ALKALINE PHOSPHATASE 91 U/L (46-116); ALT/SGPT 144 U/L (7.0-40); AST/SGOT 73 U/L (<34); BILIRUBIN,DIRECT 0.5 MG/DL (<0.4); BILIRUBIN,TOTAL 0.9 MG/DL (0.3-1.2); BLOOD UREA NITROGEN 27 MG/DL (9-23); CALCIUM LEVEL 9.2 MG/DL (8.3-10.6); CARBON DIOXIDE LEVEL 32 MMOL/L (20-31); CHLORIDE LEVEL 104 MMOL/L (98-107); CREATININE FOR GFR 0.78 MG/DL (0.70-1.30); GLOMERULAR FILTRATION RATE > 60.0 (>42); GLUCOSE, FASTING 148 MG/DL (74-106); MAGNESIUM LEVEL 2.1 MG/DL (1.8-2.4); PHOSPHORUS LEVEL 3.6 MG/DL (2.4-5.1); SODIUM LEVEL 141 MMOL/L (136-145); TOTAL PROTEIN 6.2 G/DL (5.7-8.2)
[2023-11-07 14:00] VITALS: BP 148/92; TEMP 97.5; O2SAT 98
[2023-11-07 21:37] VITALS: BP 132/78; TEMP 98.8; O2SAT 91
[2023-11-08 02:35] VITALS: O2SAT 85
[2023-11-08 02:37] VITALS: O2SAT 88
[2023-11-08 02:40] VITALS: O2SAT 92
[2023-11-08 05:53] LABS: HEMATOCRIT 49.5 % (42.0-52.0); HEMOGLOBIN 16.6 g/dl (13.5-17.5); MEAN CORPUSCULAR HEMOGLOBIN 33.9 pg (27.0-33.0); MEAN CORPUSCULAR HGB CONC 33.5 g/dl (32.0-36.5); PLATELET COUNT, AUTOMATED 267 10^3/uL (150-450); WHITE BLOOD COUNT 6.6 10^3/uL (4.0-10.0)
[2023-11-08 06:00] VITALS: BP 152/92; TEMP 97.7; O2SAT 90
[2023-11-08 06:21] LABS: BLOOD UREA NITROGEN 28 MG/DL (9-23); CALCIUM LEVEL 9.5 MG/DL (8.3-10.6); CARBON DIOXIDE LEVEL 31 MMOL/L (20-31); CHLORIDE LEVEL 103 MMOL/L (98-107); CREATININE FOR GFR 0.83 MG/DL (0.70-1.30); GLOMERULAR FILTRATION RATE > 60.0 (>42); GLUCOSE, FASTING 114 MG/DL (74-106); POTASSIUM SERUM 4.3 MMOL/L (3.5-5.1); SODIUM LEVEL 141 MMOL/L (136-145)
[2023-11-08 14:00] VITALS: BP 143/87; TEMP 98.1; O2SAT 97
[2023-11-08 20:03] VITALS: BP 149/87; TEMP 98.8; O2SAT 93
[2023-11-09 05:39] VITALS: BP 170/98; TEMP 98.1; O2SAT 94
[2023-11-09 08:36] LABS: HEMATOCRIT 51.2 % (42.0-52.0); HEMOGLOBIN 17.3 g/dl (13.5-17.5); MEAN CORPUSCULAR HEMOGLOBIN 33.9 pg (27.0-33.0); MEAN CORPUSCULAR HGB CONC 33.8 g/dl (32.0-36.5); MEAN CORPUSCULAR VOLUME 100.2 fl (80.0-96.0); PLATELET COUNT, AUTOMATED 225 10^3/uL (150-450); RED BLOOD COUNT 5.11 10^6/uL (4.30-6.10); WHITE BLOOD COUNT 7.3 10^3/uL (4.0-10.0)
[2023-11-09 09:19] LABS: BLOOD UREA NITROGEN 28 MG/DL (9-23); CALCIUM LEVEL 9.2 MG/DL (8.3-10.6); CARBON DIOXIDE LEVEL 33 MMOL/L (20-31); CHLORIDE LEVEL 107 MMOL/L (98-107); CREATININE FOR GFR 0.78 MG/DL (0.70-1.30); GLOMERULAR FILTRATION RATE > 60.0 (>42); GLUCOSE, FASTING 165 MG/DL (74-106); POTASSIUM SERUM 4.5 MMOL/L (3.5-5.1); SODIUM LEVEL 144 MMOL/L (136-145)
[2023-11-09 14:00] VITALS: BP 153/94; TEMP 98.1; O2SAT 92
[2023-11-10 03:11] VITALS: O2SAT 79
[2023-11-10 03:17] VITALS: O2SAT 94
[2023-11-10 05:05] VITALS: BP 143/99; TEMP 97.7; O2SAT 93
[2023-11-10 06:13] LABS: HEMATOCRIT 50.1 % (42.0-52.0); HEMOGLOBIN 16.8 g/dl (13.5-17.5); MEAN CORPUSCULAR HEMOGLOBIN 33.9 pg (27.0-33.0); MEAN CORPUSCULAR HGB CONC 33.5 g/dl (32.0-36.5); PLATELET COUNT, AUTOMATED 220 10^3/uL (150-450); RED BLOOD COUNT 4.96 10^6/uL (4.30-6.10); WHITE BLOOD COUNT 6.6 10^3/uL (4.0-10.0)
[2023-11-10 06:37] LABS: BLOOD UREA NITROGEN 26 MG/DL (9-23); CALCIUM LEVEL 9.3 MG/DL (8.3-10.6); CARBON DIOXIDE LEVEL 32 MMOL/L (20-31); CHLORIDE LEVEL 107 MMOL/L (98-107); GLOMERULAR FILTRATION RATE > 60.0 (>42); GLUCOSE, FASTING 135 MG/DL (74-106); POTASSIUM SERUM 3.9 MMOL/L (3.5-5.1); SODIUM LEVEL 145 MMOL/L (136-145)
[2023-11-10 09:10] VITALS: BP 145/94
[2023-11-10] MEDS: SALIVA SUBSTITUTE(MOUTHKOTE) BTL MT PRN (17:51)
[2023-11-10] MEDS: LACTULOSE 20GM/30ML SYRUP UDC PO SCH (17:52)
[2023-11-10 19:27] VITALS: O2SAT 93
[2023-11-11 04:26] VITALS: BP 143/88; TEMP 98.1; O2SAT 95
[2023-11-11 06:40] LABS: HEMATOCRIT 48.5 % (42.0-52.0); HEMOGLOBIN 16.1 g/dl (13.5-17.5); MEAN CORPUSCULAR HEMOGLOBIN 34.2 pg (27.0-33.0); MEAN CORPUSCULAR HGB CONC 33.2 g/dl (32.0-36.5); PLATELET COUNT, AUTOMATED 218 10^3/uL (150-450); RED BLOOD COUNT 4.71 10^6/uL (4.30-6.10)
[2023-11-11 07:03] LABS: BLOOD UREA NITROGEN 27 MG/DL (9-23); CALCIUM LEVEL 9.2 MG/DL (8.3-10.6); CARBON DIOXIDE LEVEL 32 MMOL/L (20-31); CHLORIDE LEVEL 110 MMOL/L (98-107); CREATININE FOR GFR 0.82 MG/DL (0.70-1.30); GLOMERULAR FILTRATION RATE > 60.0 (>42); GLUCOSE, FASTING 157 MG/DL (74-106); POTASSIUM SERUM 3.9 MMOL/L (3.5-5.1); SODIUM LEVEL 148 MMOL/L (136-145)
[2023-11-11] MEDS: ACETYLCYSTEINE 20% 4 ML VIAL (200MG/ML) INH SCH (20:00)
[2023-11-12 06:00] VITALS: BP 152/90; TEMP 98.4; O2SAT 97
[2023-11-12 06:36] LABS: HEMATOCRIT 48.3 % (42.0-52.0); MEAN CORPUSCULAR HEMOGLOBIN 33.7 pg (27.0-33.0); MEAN CORPUSCULAR HGB CONC 33.1 g/dl (32.0-36.5); MEAN CORPUSCULAR VOLUME 101.7 fl (80.0-96.0); PLATELET COUNT, AUTOMATED 210 10^3/uL (150-450); RED BLOOD COUNT 4.75 10^6/uL (4.30-6.10); WHITE BLOOD COUNT 6.5 10^3/uL (4.0-10.0)
[2023-11-12 07:03] LABS: BLOOD UREA NITROGEN 28 MG/DL (9-23); CALCIUM LEVEL 9.3 MG/DL (8.3-10.6); CARBON DIOXIDE LEVEL 31 MMOL/L (20-31); CHLORIDE LEVEL 109 MMOL/L (98-107); CREATININE FOR GFR 0.76 MG/DL (0.70-1.30); GLOMERULAR FILTRATION RATE > 60.0 (>42); GLUCOSE, FASTING 158 MG/DL (74-106); POTASSIUM SERUM 3.9 MMOL/L (3.5-5.1); SODIUM LEVEL 147 MMOL/L (136-145)
[2023-11-12 08:59] VITALS: BP 147/95; TEMP 97.9; O2SAT 94
[2023-11-13 06:20] LABS: HEMATOCRIT 47.3 % (42.0-52.0); HEMOGLOBIN 15.7 g/dl (13.5-17.5); MEAN CORPUSCULAR HEMOGLOBIN 33.6 pg (27.0-33.0); MEAN CORPUSCULAR HGB CONC 33.2 g/dl (32.0-36.5); MEAN CORPUSCULAR VOLUME 101.3 fl (80.0-96.0); PLATELET COUNT, AUTOMATED 206 10^3/uL (150-450); RED BLOOD COUNT 4.67 10^6/uL (4.30-6.10); WHITE BLOOD COUNT 6.6 10^3/uL (4.0-10.0)
[2023-11-13 06:26] VITALS: BP 146/71; TEMP 98.6; O2SAT 94
[2023-11-13 06:43] LABS: BLOOD UREA NITROGEN 25 MG/DL (9-23); CALCIUM LEVEL 9.1 MG/DL (8.3-10.6); CARBON DIOXIDE LEVEL 32 MMOL/L (20-31); CHLORIDE LEVEL 111 MMOL/L (98-107); CREATININE FOR GFR 0.79 MG/DL (0.70-1.30); GLOMERULAR FILTRATION RATE > 60.0 (>42); GLUCOSE, FASTING 113 MG/DL (74-106); POTASSIUM SERUM 4.1 MMOL/L (3.5-5.1); SODIUM LEVEL 147 MMOL/L (136-145)
[2023-11-14 04:30] VITALS: BP 152/98; TEMP 98.1; O2SAT 96
[2023-11-14 06:05] LABS: HEMATOCRIT 47.5 % (42.0-52.0); HEMOGLOBIN 15.8 g/dl (13.5-17.5); MEAN CORPUSCULAR HGB CONC 33.3 g/dl (32.0-36.5); MEAN CORPUSCULAR VOLUME 102.2 fl (80.0-96.0); PLATELET COUNT, AUTOMATED 192 10^3/uL (150-450); RED BLOOD COUNT 4.65 10^6/uL (4.30-6.10); WHITE BLOOD COUNT 6.8 10^3/uL (4.0-10.0)
[2023-11-14 06:28] LABS: BLOOD UREA NITROGEN 23 MG/DL (9-23); CALCIUM LEVEL 9.2 MG/DL (8.3-10.6); CARBON DIOXIDE LEVEL 32 MMOL/L (20-31); CHLORIDE LEVEL 113 MMOL/L (98-107); CREATININE FOR GFR 0.74 MG/DL (0.70-1.30); GLOMERULAR FILTRATION RATE > 60.0 (>42); GLUCOSE, FASTING 117 MG/DL (74-106); POTASSIUM SERUM 4.2 MMOL/L (3.5-5.1); SODIUM LEVEL 149 MMOL/L (136-145)
[2023-11-15 05:00] VITALS: BP 153/97; TEMP 98.1; O2SAT 97
[2023-11-16 06:00] VITALS: BP 162/95; TEMP 98.2; O2SAT 95
[2023-11-16 09:32] VITALS: BP 172/98
[2023-11-16] MEDS ORDERED: ALB2.5NEB NEB (11:22)
[2023-11-16] MEDS ORDERED: MOUKOT60 MT (11:22)
[2023-11-16] MEDS ORDERED: LACT20EL PO (11:22)
[2023-11-16] MEDS ORDERED: AMLO1TAB25 PEG (11:22)
[2023-11-16] MEDS ORDERED: HYDR-3363 PO (11:22)
[2023-11-16] MEDS ORDERED: IPRA0.00 NEB (11:22)
[2023-11-16] MEDS ORDERED: ACET20%4ML INH (11:22)
[2023-11-16] MEDS ORDERED: OMEP90SU GT (11:22)
[2023-11-16] MEDS ORDERED: NYST10006 TOP (11:22)
[2023-11-16] MEDS ORDERED: LIDO5TD TD (11:22)
== END 2023-11-16 12:37 | DRG 69 ==
LOC: EDBD 03:25 → M ED 03:25 → M ED INP 05:24 → M MSPAV 14:21 → M ICU 15:05 → M MSPAV 10-20 14:25 → M PCU 10-21 07:43 → M MSPAV 10-26 03:06
PROVIDERS: ADMIT Internal Medicine; ATTEND Internal Medicine
PROC: 0DH63UZ Insertion of Feeding Device into Stomach, Percutaneous Approach (ICD-10-PCS; 2023-10-09)
PROC: 5A1945Z Respiratory Ventilation, 24-96 Consecutive Hours (ICD-10-PCS; principal; 2023-10-10)
PROC: B246ZZZ Ultrasonography of Right and Left Heart (ICD-10-PCS; 2023-10-10)
PROC: 0BH17EZ Insertion of Endotracheal Airway into Trachea, Via Natural or Artificial Opening (ICD-10-PCS; 2023-10-10)
DX: G45.9 Transient cerebral ischemic attack, unspecified (principal); I61.9 Nontraumatic intracerebral hemorrhage, unspecified; J69.0 Pneumonitis due to inhalation of food and vomit; J14 Pneumonia due to Hemophilus influenzae; J96.00 Acute respiratory failure, unspecified whether with hypoxia or hypercapnia; G93.41 Metabolic encephalopathy; J96.01 Acute respiratory failure with hypoxia; F10.239 Alcohol dependence with withdrawal, unspecified; E46 Unspecified protein-calorie malnutrition; I69.351 Hemiplegia and hemiparesis following cerebral infarction affecting right dominant side; E87.0 Hyperosmolality and hypernatremia; J98.11 Atelectasis; L89.313 Pressure ulcer of right buttock, stage 3; L89.323 Pressure ulcer of left buttock, stage 3; I25.10 Atherosclerotic heart disease of native coronary artery without angina pectoris; I25.2 Old myocardial infarction; I10 Essential (primary) hypertension; K21.9 Gastro-esophageal reflux disease without esophagitis; D75.1 Secondary polycythemia; E78.5 Hyperlipidemia, unspecified; R47.1 Dysarthria and anarthria; I16.0 Hypertensive urgency; K72.90 Hepatic failure, unspecified without coma; I69.391 Dysphagia following cerebral infarction; K76.82 Hepatic encephalopathy; Z79.82 Long term (current) use of aspirin; Z79.899 Other long term (current) drug therapy; Z88.5 Allergy status to narcotic agent; Z11.52 Encounter for screening for COVID-19

== ENCOUNTER 2023-12-04 02:29 | Emergency (ER) | payer MEDICARE, BC, OTHER ==
[~2023-12-04] VITALS: Ht 182.9 cm; Wt 83.0 kg
[~2023-12-04 02:29] MED LIST changes: +ACET20%4ML INH; +ALB2.5NEB NEB; +AMLO1TAB25 PEG; +ASPI81TA26 PO; +BISA5TAB15 PO; +COQ1200C PO; +HYDR-3363 PO; +IPRA0.00 NEB; +IRON65TA2 PO; +LACT20EL PO; +LIDO5TD TD; +MECL-86 PO; +MOUKOT60 MT; +NYST10006 TOP; +OMEP90SU GT; +VERA180T42 PO
[2023-12-04 02:41] VITALS: BP 161/77; TEMP 97.3; O2SAT 96
[2023-12-04] MEDS ORDERED: MOUKOT60 MT (11:55)
[2023-12-04] MEDS ORDERED: ACET1TAB55 PEG (11:55)
[2023-12-04] MEDS ORDERED: MONT10TA97 PEG (11:55)
[2023-12-04] MEDS ORDERED: LACT20EL PEG (11:55)
[2023-12-04] MEDS ORDERED: BREO1INH3 INH (11:55)
[2023-12-04] MEDS ORDERED: IPRA0.00 INH (11:55)
[2023-12-04] MEDS ORDERED: OMEP90SU PEG (11:55)
== END 2023-12-04 04:12 | disposition home or self-care (01) ==
LOC: EDBD 02:29 → M ED 02:29
DX: K94.23 Gastrostomy malfunction (principal); Z88.5 Allergy status to narcotic agent

== ENCOUNTER 2023-12-04 08:17 | Observation (INO) | payer MEDICARE, BC, OTHER ==
[~2023-12-04] VITALS: Ht 175.3 cm; Wt 93.2 kg
[2023-12-04 08:32] VITALS: TEMP 98.3; O2SAT 94
[2023-12-04 10:48] VITALS: BP 148/80
[2023-12-04] MEDS: GASTROGRAFIN SOLUTION 30ML FT ONE (11:53)
[2023-12-04] MEDS ORDERED: ACET1TAB55 PEG (11:55)
[2023-12-04] MEDS ORDERED: BREO1INH3 INH (11:55)
[2023-12-04] MEDS ORDERED: OMEP90SU PEG (11:55)
[2023-12-04] MEDS ORDERED: LACT20EL PEG (11:55)
[2023-12-04] MEDS ORDERED: IPRA0.00 INH (11:55)
[2023-12-04] MEDS ORDERED: MONT10TA97 PEG (11:55)
[2023-12-04] MEDS ORDERED: MOUKOT60 MT (11:55)
[2023-12-04] MEDS ORDERED: HOME MED LIST COMPLETE! XX SCH (12:00)
[2023-12-04 13:58] LABS: BASO # 0.1 10^3/uL (0.0-0.2); BASO % 0.8 % (0.0-1.0); EOS # 0.2 10^3/uL (0.0-0.5); EOS % 2.6 % (0.0-3.0); HEMATOCRIT 47.2 % (42.0-52.0); HEMOGLOBIN 15.9 g/dl (13.5-17.5); LYMPH # 1.1 10^3/uL (1.5-5.0); LYMPH % 13.3 % (24.0-44.0); MEAN CORPUSCULAR HEMOGLOBIN 33.9 pg (27.0-33.0); MEAN CORPUSCULAR HGB CONC 33.7 g/dl (32.0-36.5); MEAN CORPUSCULAR VOLUME 100.6 fl (80.0-96.0); MONO # 0.7 10^3/uL (0.0-0.8); MONO % 8.2 % (2.0-8.0); NEUTROPHILS # 6.2 10^3/uL (1.5-8.5); NEUTROPHILS % 73.8 % (36.0-66.0); PLATELET COUNT, AUTOMATED 259 10^3/uL (150-450); RED BLOOD COUNT 4.69 10^6/uL (4.30-6.10); WHITE BLOOD COUNT 8.5 10^3/uL (4.0-10.0)
[2023-12-04 14:20] LABS: BLOOD UREA NITROGEN 19 MG/DL (9-23); CALCIUM LEVEL 9.5 MG/DL (8.3-10.6); CARBON DIOXIDE LEVEL 35 MMOL/L (20-31); CHLORIDE LEVEL 109 MMOL/L (98-107); CREATININE FOR GFR 0.88 MG/DL (0.70-1.30); GLOMERULAR FILTRATION RATE > 60.0 (>42); GLUCOSE, FASTING 104 MG/DL (74-106); POTASSIUM SERUM 3.9 MMOL/L (3.5-5.1); SODIUM LEVEL 146 MMOL/L (136-145)
[2023-12-04] MEDS: MORPHINE 2 MG/ML 1ML VIAL IV PRN (16:25)
[2023-12-04] MEDS: LORazepam 2 MG/ML 1ML VIAL IV PRN (18:28)
[2023-12-04] MEDS: LORazepam 1 MG TAB PO PRN (20:54)
[2023-12-04] MEDS: MORPHINE 10MG/0.5ML ORAL CONCENTRATE SOLUTION U/D SL PRN (20:55)
[2023-12-06] MEDS ORDERED: MORPHINE 10MG/0.5ML ORAL CONCENTRATE SOLUTION U/D SL PRN (15:55)
[2023-12-07] MEDS: SCOPOLAMINE 1MG TRANSDERMAL PATCH TOP PRN (12:12)
[2023-12-07] MEDS: ATROPINE SULFATE 1% OPHTH SOLN 2ML BTL SL PRN (15:17)
== END 2023-12-08 10:59 | disposition expired ==
LOC: M ED 08:17 → EDBD 08:17 → M ED INP 08:18 → ENRESERV 15:27 → M MS5PR 16:20
PROVIDERS: ADMIT Internal Medicine; ATTEND Internal Medicine
DX: R57.1 Hypovolemic shock (principal); K94.23 Gastrostomy malfunction; Z88.5 Allergy status to narcotic agent; G93.40 Encephalopathy, unspecified; E87.0 Hyperosmolality and hypernatremia; D75.89 Other specified diseases of blood and blood-forming organs; I69.351 Hemiplegia and hemiparesis following cerebral infarction affecting right dominant side; R13.10 Dysphagia, unspecified; J44.9 Chronic obstructive pulmonary disease, unspecified; K21.9 Gastro-esophageal reflux disease without esophagitis; E46 Unspecified protein-calorie malnutrition; M62.50 Muscle wasting and atrophy, not elsewhere classified, unspecified site; Z79.899 Other long term (current) drug therapy
CPT/HCPCS: 43762; 74018; 80048; 85025; 96374; 96375; 96376; 99284; G0378; J2060; Q9963